=== PATIENT | male | born 1965 | race Caucasian/White ===

== ENCOUNTER 2019-09-19 09:29 | Inpatient (IN) | payer BC ==
[2019-09-19 09:50] VITALS: BMI 25.2
--- NOTE | 2019-09-19 10:41 | HP ---
CIWA Score Nausea/Vomitin Muscle Tremors: 2 Anxiety: 3 Agitation: 3 Paroxysmal Sweats: No Perspiration Orientation: 0-Oriented Tacttile Disturbances: 1-Very Mild Itch/Numbness Auditory Disturbances: 0-None Visual Disturbances: 0-None Headache: 2-Mild CIWA-Ar Total Score: 13 - Admission Criteria OASAS Guidelines: Admission for Medically Managed Detox: Requires at least one of the followin. CIWA greater than 12 2. Seizures within the past 24 hours 3. Delirium tremens within the past 24 hours 4. Hallucinations within the past 24 hours 5. Acute intervention needed for co occurring medical disorder 6. Acute intervention needed for co occurring psychiatric disorder 7. Severe withdrawal that cannot be handled at a lower level of care (continued vomiting, continued diarrhea, abnormal vital signs) requiring intravenous medication and/or fluids 8. Admission ROS S - HPI Chief Complaint: i need help to stop drinking alcohol and drugs Allergies/Adverse Reactions: Allergies Allergy/AdvReac Type Severity Reaction Status Date / Time No Known Allergies Allergy Verified 09/19/19 09:37 History of Present Illness: this 54 years old male with alcohol,cocaine and marijuana,k2,heroin abused,on mmtp 100 mgs/day,last medicated methadone on 09/18/19 first time to this facility never been in detox before syncope last night no seizure seen in [place] last night ,hepatitis c for 2 years follow up with [place] pending on treatment bipolar disorder ,non compliance no sobriety plan for outpatient program and mmtp clinic Exam Limitations: No Limitations - Ebola screening Have you traveled outside of the country in the last 21 days: No (N) Have you had contact with anyone from an Ebola affected area: No Do you have a fever: No - Review of Systems Constitutional: Chills, Malaise, Night Sweats, Changes in sleep, Weakness EENT: reports: Tearing, Nose Congestion Respiratory: reports: No Symptoms reported, Other (asthma) Cardiac: reports: No Symptoms Reported GI: reports: Nausea, Poor Appetite, Vomiting, Abdominal cramping : reports: No Symptoms Reported Musculoskeletal: reports: Back Pain, Muscle Pain Integumentary: reports: Dryness Neuro: reports: Headache, Tremors Endocrine: reports: No Symptoms Reported Hematology: reports: No Symptoms Reported Psychiatric: reports: No Sypmtoms Reported, Judgement Intact, Mood/Affect Appropiate, other (bipolar disorder) Other Systems: Reviewed and Negative Patient History - Patient Medical History Hx Anemia: No Hx Asthma: Yes (on albuterol inhaler) Hx Chronic Obstructive Pulmonary Disease (COPD): No Hx Cancer: No Hx Cardiac Disorders: No Hx Congestive Heart Failure: No Hx Hypertension: No Hx Hypercholesterolemia: No Hx Pacemaker: No HX Cerebrovascular Accident: No Hx Seizures: No Hx Dementia: No Hx Diabetes: No Hx Gastrointestinal Disorders: No Hx Liver Disease: Yes (hapatitis c no treatment follow up with pmd at [place]) Hx Genitourinary Disorders: No Hx Sexually Transmitted Disorders: No Hx Renal Disease (ESRD): No Hx Thyroid Disease: No Hx Human Immunodeficiency Virus (HIV): No (06/11 negative) Hx Hepatitis C: Yes (no treatment) Hx Depression: No Hx Suicide Attempt: No Hx Bipolar Disorder: Yes (non compliance with medication) Hx Schizophrenia: Yes (non compliance with medication) Other Medical History: no sicidal,no homicidal - Patient Surgical History Past Surgical History: No - PPD History Previous Implant?: Yes Documented Results: Negative w/o proof Implanted On Prior [facility] Admission?: No PPD to be Administered?: Yes - Smoking Cessation Smoking history: Current every day smoker Have you smoked in the past 12 months: Yes Aproximately how many cigarettes per day: 20 Cigars Per Day: 0 Hx Chewing Tobacco Use: No Initiated information on smoking cessation: Yes 'Breaking Loose' booklet given: 09/19/19 - Substance & Tx. History Hx Alcohol Use: Yes Hx Substance Use: Yes Substance Use Type: Alcohol, Cocaine, Heroin, Marijuana Hx Substance Use Treatment: No - Substances abused Alcohol Substance route: Oral Frequency: Daily Amount used: 7 PINTS OF VODKA Age of first use: 25 Date of last use: 09/18/19 Heroin Substance route: Injection Frequency: Daily Amount used: 13 BAGS Age of first use: 13 Date of last use: 09/18/19 Cocaine Substance route: Injection Frequency: Daily Amount used: 2 grams Age of first use: 25 Date of last use: 09/18/19 Marijuana/Hashish Substance route: Smoking Frequency: Daily Amount used: 10$ Age of first use: 19 Date of last use: 09/18/19 K2/Spice Substance route: Smoking Frequency: Daily Amount used: 5$ Age of first use: 54 Date of last use: 09/18/19 Admission Physical Exam [facility] - Vital Signs Vital Signs: Vital Signs - 24 hr 09/19/19 09:33 Temperature 97.7 F Pulse Rate 71 Respiratory 20 Rate Blood Pressure 100/64 - Physical General Appearance: Yes: Moderate Distress, Tremorous, Irritable, Anxious HEENTM: Yes: Normal ENT Inspection, PAUL, Pharynx Normal Respiratory: Yes: Lungs Clear, Normal Breath Sounds, No Respiratory Distress Neck: Yes: Within Normal Limits, Supple, Trachea in good position Breast: Yes: Within Normal Limits Cardiology: Yes: Within Normal Limits, Regular Rhythm, Regular Rate, S1, S2 Abdominal: Yes: Within Normal Limits, Normal Bowel Sounds, Non Tender, Soft Genitourinary: Yes: Within Normal Limits Musculoskeletal: Yes: Back pain, Muscle Pain Extremities: Yes: Tremors Neurological: Yes: Within Normal Limits, fur designer II-XII NML intact, Fully Oriented, Alert Integumentary: Yes: Dry, Track Diaz Lymphatic: Yes: Within Normal Limits - Diagnostic (1) Alcohol dependence with uncomplicated withdrawal Current Visit: Yes Status: Acute (2) History of opioid abuse Current Visit: Yes Status: Acute (3) Methadone maintenance therapy patient Current Visit: Yes Status: Acute (4) IVDU (intravenous drug user) Current Visit: Yes Status: Acute (5) Bipolar disorder Current Visit: Yes Status: Deleted (6) Schizophrenia Current Visit: Yes Status: Acute (7) Dehydration Current Visit: Yes Status: Acute (8) Asthma Current Visit: Yes Status: Chronic (9) Use of cane as ambulatory aid Current Visit: Yes Status: Acute Cleared for Admission [facility] - Detox or Rehab [facility] Level of Care: Medically Managed Detox Regimen/Protocol: Librium Inpatient Rehab Admission - Rehab Decision to Admit Inpatient rehab admission?: No
[2019-09-19] MEDS ORDERED: chlordiazePOXIDE HCL 25 MG CAPSULE PO PRN (10:55)
[2019-09-19] MEDS ORDERED: IBUPROFEN 400 MG TABLET (FP) PO PRN (10:55)
[2019-09-19] MEDS ORDERED: NICOTINE POLACRILEX 2 MG GUM BUC PRN (10:55)
[2019-09-19] MEDS ORDERED: MELATONIN 5 MG TABLETS PO PRN (10:55)
[2019-09-19] MEDS ORDERED: MAGNESIUM CITRATE 300 ML BOTTLE PO PRN (10:55)
[2019-09-19] MEDS ORDERED: MENTHOL/PHENOL 1 EACH UD MM PRN (10:55)
[2019-09-19] MEDS ORDERED: MAGNESIUM HYDROX 2400MG/30ML ORAL SUSPENSION 30 ML CUP PO PRN (10:55)
[2019-09-19] MEDS ORDERED: hydrOXYzine PAMOATE 25 MG CAPSULE (FP) PO PRN (10:55)
[2019-09-19] MEDS ORDERED: METHOCARBAMOL 500 MG TABLET PO PRN (10:55)
[2019-09-19] MEDS ORDERED: MAG HYDROX/AL HYDROX/SIMETH 30 ML UNIT-DOSE CUP PO PRN (10:55)
[2019-09-19] MEDS ORDERED: ACETAMINOPHEN 325 MG TABLET (FP) PO PRN (10:55)
[2019-09-19] MEDS ORDERED: ALBUTEROL SO4 8 GM HFA INHALER IH PRN (11:07)
[2019-09-19] MEDS: NICOTINE 21 MG/24 HOURS TOPICAL PATCH TD SCH (11:50)
[2019-09-19] MEDS: chlordiazePOXIDE HCL 25 MG CAPSULE PO SCH ×2 (17:18→23:18)
--- NOTE | 2019-09-19 20:34 | PN ---
[facility] Progress Note Note: MD'S NOTE: INFORMED AT ABOUT 8:10PM THAT THE PT. FELL ON THE FLOOR SUB: FEELS WEAK AND DIZZY AND FELL HE CLAIMS THAT HE HIT THE RT. SIDE OF THE HEAD PAIN IN RT. WRIST+ OBJ: THE PT. IS [place] X 3, NOT DYSPNEIC AND NOT IN ACUTE DISTRESS V/S: 98.2-16-74-105/62 L/E: RT. SIDE OF THE HEAD: TENDERNESS++. NO SWELLING RT. 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 SIDE OF THE HEAD SPRAIN - RT. WRIST REGION - R/O: FRACTURE PLANS: -THE PT. WAS SENT TO THE ER FOR EVALUATION PER THE FALL PROTOCOL #1 -DR. SLADE, THE ER-MD WAS MADE AWARE OF THE EVENTS -WILL F/U NEEDED PROVIDER: DENG ERAZO MD
[2019-09-19] MEDS: THIAMINE HCL 100 MG TABLET (FP) PO SCH (23:19)
[2019-09-20] MEDS: chlordiazePOXIDE HCL 25 MG CAPSULE PO SCH ×4 (06:23→22:39)
[2019-09-20] MEDS: ACETAMINOPHEN 325 MG TABLET (FP) PO PRN (06:23)
[2019-09-20] MEDS ORDERED: METHADONE HCL 40 MG DISPERSABLE TABLET ONE (07:25)
[2019-09-20] MEDS ORDERED: METHADONE HCL 10 MG TABLET ONE (07:25)
[2019-09-20] MEDS: METHADONE 80 MG, METHADONE 20 MG PO SCH (07:29)
[2019-09-20] MEDS ORDERED: METHADONE HCL 10 MG TABLET PO SCH (07:30)
[2019-09-20 10:00] LABS: HEMATOCRIT 37.8 % (35.4-49); MCH 26.5 pg (25.7-33.7); MCHC 31.8 g/dl (32.0-35.9); MEAN CELL VOLUME 83.3 fl (80-96); PLATELET COUNT 278 K/MM3 (134-434); RBC 4.53 M/mm3 (4.00-5.60); RDW 14.7 % (11.9-15.9); WHITE BLOOD COUNT 5.9 K/mm3 (4.0-10.0)
[2019-09-20 10:08] LABS: BILIRUBIN,TOTAL 0.2 mg/dL (0.2-1); BLOOD UREA NITROGEN 18.4 mg/dL (7-18); CALCIUM 8.9 mg/dL (8.5-10.1); CREATININE 0.8 mg/dL (0.55-1.3); POTASSIUM 4.3 mmol/L (3.5-5.1); TOT PROT 6.8 g/dl (6.4-8.2)
[2019-09-20] MEDS: PRENATAL VITAMINS W/ FOLIC ACID TABLET (FP) PO SCH (10:28)
[2019-09-20] MEDS: NICOTINE 21 MG/24 HOURS TOPICAL PATCH TD SCH (10:29)
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
[2019-09-20] MEDS ORDERED: FLU VACCINE QUAD 60 MCG/0.5 ML (MDV 19-20) IM ONE (12:00)
[2019-09-20] MEDS: ESCITALOPRAM OXALATE 20 MG TABLET (FP) PO SCH (12:00)
--- NOTE | 2019-09-20 14:21 | PN ---
[facility] CIWA - CIWA Score Nausea/Vomitin-Mild Nausea/No Vomiting Muscle Tremors: 2 Anxiety: 2 Agitation: 2 Paroxysmal Sweats: No Perspiration Orientation: 0-Oriented Tacttile Disturbances: 1-Very Mild Itch/Numbness Auditory Disturbances: 0-None Visual Disturbances: 0-None Headache: 2-Mild CIWA-Ar Total Score: 10 S Progress Note (SOAP) Subjective: alert,irritable,anxious,interrupted sleep,pain in the body ,back,tremor Objective: 09/20/19 14:20 Vital Signs Temperature 97.7 F 09/20/19 13:12 Pulse Rate 71 09/20/19 13:12 Respiratory Rate 16 09/20/19 13:12 Blood Pressure 124/58 L 09/20/19 13:12 O2 Sat by Pulse Oximetry (%) Laboratory Last Values WBC 5.9 K/mm3 (4.0-10.0) 09/20/19 08:20 RBC 4.53 M/mm3 (4.00-5.60) 09/20/19 08:20 Hgb 12.0 GM/dL (11.7-16.9) 09/20/19 08:20 Hct 37.8 % (35.4-49) 09/20/19 08:20 MCV 83.3 fl (80-96) 09/20/19 08:20 MCH 26.5 pg (25.7-33.7) 09/20/19 08:20 MCHC 31.8 g/dl (32.0-35.9) L 09/20/19 08:20 RDW 14.7 % (11.9-15.9) 09/20/19 08:20 Plt Count 278 K/MM3 (134-434) 09/20/19 08:20 MPV 8.0 fl (7.5-11.1) 09/20/19 08:20 Sodium 139 mmol/L (136-145) 09/20/19 08:20 Potassium 4.3 mmol/L (3.5-5.1) 09/20/19 08:20 Chloride 104 mmol/L (98-107) 09/20/19 08:20 Carbon Dioxide 29 mmol/L (21-32) 09/20/19 08:20 Anion Gap 6 MMOL/L (8-16) L 09/20/19 08:20 BUN 18.4 mg/dL (7-18) H 09/20/19 08:20 Creatinine 0.8 mg/dL (0.55-1.3) 09/20/19 08:20 Est GFR (CKD-EPI)AfAm 116.56 09/20/19 08:20 Est GFR (CKD-EPI)NonAf 100.57 09/20/19 08:20 Random Glucose 92 mg/dL (74-106) 09/20/19 08:20 Calcium 8.9 mg/dL (8.5-10.1) 09/20/19 08:20 Total Bilirubin 0.2 mg/dL (0.2-1) 09/20/19 08:20 AST 27 U/L (15-37) 09/20/19 08:20 ALT 24 U/L (13-61) 09/20/19 08:20 Alkaline Phosphatase 117 U/L (45-117) 09/20/19 08:20 Total Protein 6.8 g/dl (6.4-8.2) 09/20/19 08:20 Albumin 3.0 g/dl (3.4-5.0) L 09/20/19 08:20 RPR Titer Nonreactive (NONREACTIVE) 09/20/19 08:20 HIV 1&2 Antibody Screen Negative 09/20/19 08:20 HIV P24 Antigen Negative 09/20/19 08:20 Assessment: 09/20/19 14:21 withdrawal symptom Plan: continue detox,bun 18.4,probably due to dehydration,encourage oral fluid,obtain cane for ambulatory aid
[2019-09-20] MEDS ORDERED: SUVOREXANT 10 MG TABLET PO PRN (22:00)
[2019-09-20] MEDS: THIAMINE HCL 100 MG TABLET (FP) PO SCH (22:05)
[2019-09-20] MEDS: OLANZapine 10 MG TABLET PO SCH (22:08)
[2019-09-21] MEDS ORDERED: METHADONE HCL 40 MG DISPERSABLE TABLET ONE ×2 (04:44→09:02)
[2019-09-21] MEDS ORDERED: METHADONE HCL 10 MG TABLET ONE ×2 (04:44→09:01)
[2019-09-21] MEDS: chlordiazePOXIDE HCL 25 MG CAPSULE PO SCH ×4 (05:52→23:25)
[2019-09-21] MEDS: LOPERAMIDE HCL 2 MG CAPSULE PO PRN (06:39)
[2019-09-21] MEDS: METHADONE 80 MG, METHADONE 20 MG PO SCH ×2 (07:11→11:32)
[2019-09-21] MEDS: BISMUTH SUBSALICYLATE 524 MG/30 ML UD PO PRN (11:08)
[2019-09-21] MEDS: ESCITALOPRAM OXALATE 20 MG TABLET (FP) PO SCH (11:32)
--- NOTE | 2019-09-21 11:32 | PN ---
[facility] CIWA - CIWA Score Nausea/Vomitin-Mild Nausea/No Vomiting Muscle Tremors: 2 Anxiety: 2 Agitation: 2 Paroxysmal Sweats: No Perspiration Orientation: 0-Oriented Tacttile Disturbances: 1-Very Mild Itch/Numbness Auditory Disturbances: 0-None Visual Disturbances: 0-None Headache: 1-Very Mild CIWA-Ar Total Score: 9 BHS COWS - Scale Resting Pulse: 0= [place] 80 or Below Sweatin= No chills or Flushing Restless Observation: 1= Difficult to Sit Still Pupil Size: 1= Pupils >than Normal Bone or Joint Aches: 1= Mild Discomfort Runny Nose/ Eye Tearin= Nasal Congestion GI Upset > 30mins: 2= Nausea/Diarrhea Tremor Observation of Outstretched Hands: 2= Slight Tremor Visible Yawning Observation: 1= 1-2x During Session Anxiety or Irritability: 2=Irritable/Anxious Goose Flesh Skin: 0=Smooth Skin COWS Score: 11 S Progress Note (SOAP) Subjective: alert,irritable,anxious,loose bowel movement,pain in the body,back Objective: 09/21/19 11:30 Vital Signs Temperature 97.9 F 09/21/19 09:37 Pulse Rate 84 09/21/19 09:37 Respiratory Rate 18 09/21/19 09:37 Blood Pressure 119/64 09/21/19 09:37 O2 Sat by Pulse Oximetry (%) Assessment: 09/21/19 11:31 withdrawal symptom Plan: continue detox methadone and lirium regimen
[2019-09-21] MEDS: NICOTINE 21 MG/24 HOURS TOPICAL PATCH TD SCH (11:35)
[2019-09-21] MEDS: PRENATAL VITAMINS W/ FOLIC ACID TABLET (FP) PO SCH (11:35)
[2019-09-21] MEDS: THIAMINE HCL 100 MG TABLET (FP) PO SCH (23:30)
[2019-09-21] MEDS: OLANZapine 10 MG TABLET PO SCH (23:35)
[2019-09-22] MEDS ORDERED: chlordiazePOXIDE HCL 10 MG CAPSULE PO PRN
[2019-09-22] MEDS: LOPERAMIDE HCL 2 MG CAPSULE PO PRN ×3 (01:57→15:52)
[2019-09-22] MEDS: chlordiazePOXIDE HCL 10 MG CAPSULE PO SCH ×5 (06:25→22:26)
[2019-09-22] MEDS: ACETAMINOPHEN 325 MG TABLET (FP) PO PRN (06:26)
[2019-09-22] MEDS ORDERED: METHADONE HCL 10 MG TABLET ONE (09:34)
[2019-09-22] MEDS ORDERED: METHADONE HCL 40 MG DISPERSABLE TABLET ONE (09:35)
--- NOTE | 2019-09-22 09:44 | PN ---
S CIWA - CIWA Score Nausea/Vomitin-Mild Nausea/No Vomiting Muscle Tremors: 1-None Visible, but [place] Anxiety: 2 Agitation: 2 Paroxysmal Sweats: No Perspiration Orientation: 0-Oriented Tacttile Disturbances: 1-Very Mild Itch/Numbness Auditory Disturbances: 0-None Visual Disturbances: 0-None Headache: 1-Very Mild CIWA-Ar Total Score: 8 BHS Progress Note (SOAP) Subjective: alert,irritable,anxious,interrupted sleep,pain in the body,knees Objective: 09/22/19 09:43 Vital Signs Temperature 97.9 F 09/22/19 06:23 Pulse Rate 74 09/22/19 06:23 Respiratory Rate 18 09/22/19 06:23 Blood Pressure 108/63 09/22/19 06:23 O2 Sat by Pulse Oximetry (%) Assessment: 09/22/19 09:43 withdrawal symptom Plan: continue detox librium regimen
[2019-09-22] MEDS: PRENATAL VITAMINS W/ FOLIC ACID TABLET (FP) PO SCH ×2 (10:47→11:17)
[2019-09-22] MEDS: METHADONE 80 MG, METHADONE 20 MG PO SCH (10:48)
[2019-09-22] MEDS: ESCITALOPRAM OXALATE 20 MG TABLET (FP) PO SCH ×2 (10:48→11:17)
[2019-09-22] MEDS: NICOTINE 21 MG/24 HOURS TOPICAL PATCH TD SCH ×2 (10:48→11:17)
[2019-09-22] MEDS: BISMUTH SUBSALICYLATE 524 MG/30 ML UD PO PRN (17:49)
--- NOTE | 2019-09-22 19:09 | PN ---
S Progress Note Note: Vital Signs Temperature 98.1 F 09/22/19 17:04 Pulse Rate 64 09/22/19 17:04 Respiratory Rate 20 09/22/19 17:04 Blood Pressure 92/57 L 09/22/19 17:04 O2 Sat by Pulse Oximetry (%) BP 160/80 PATIENT EVALUATED D/T EPISODE OF DIZZY SPELL AND LOWER SELF TO THE FLOOR PATIENT REPORTS HE BEND FORWARD AND FELT DIZZY, DENIES HEADACHE ANY OTHER SYMPTOMS PATIENT AOX3 NO ACUTE DISTRESS EENT WNL, CHEILITHIS FULL ROM NO GAIT DISTURBANCE AMBULATING IN THE UNIT WITH CANE VERTIGO INCREASE PO FLUIDS WHEELCHAIR CONTINUE TO MONITOR
[2019-09-22] MEDS: OLANZapine 10 MG TABLET PO SCH (22:25)
[2019-09-22] MEDS: THIAMINE HCL 100 MG TABLET (FP) PO SCH (22:26)
[2019-09-23] MEDS: ACETAMINOPHEN 325 MG TABLET (FP) PO PRN (02:42)
[2019-09-23] MEDS: chlordiazePOXIDE HCL 10 MG CAPSULE PO SCH ×2 (07:19→17:54)
[2019-09-23] MEDS ORDERED: METHADONE HCL 40 MG DISPERSABLE TABLET ONE (09:34)
[2019-09-23] MEDS ORDERED: METHADONE HCL 10 MG TABLET ONE (09:34)
--- NOTE | 2019-09-23 09:47 | PN ---
BHS COWS - Scale Resting Pulse: 1= AL 81-100 Sweatin= No chills or Flushing Restless Observation: 1= Difficult to Sit Still Pupil Size: 1= Pupils >than Normal Bone or Joint Aches: 1= Mild Discomfort Runny Nose/ Eye Tearin= Nasal Congestion GI Upset > 30mins: 1= Stomach Cramp Tremor Observation of Outstretched Hands: 1= Tremor [place], Not Seen Yawning Observation: 1= 1-2x During Session Anxiety or Irritability: 2=Irritable/Anxious Goose Flesh Skin: 0=Smooth Skin COWS Score: 10 S Progress Note (SOAP) Subjective: alert,feel weak,diarrhea,pain in the body Objective: 09/23/19 09:46 Vital Signs Temperature 97.7 F 09/23/19 09:19 Pulse Rate 91 H 09/23/19 09:19 Respiratory Rate 20 09/23/19 09:19 Blood Pressure 103/62 09/23/19 09:19 O2 Sat by Pulse Oximetry (%) Assessment: 09/23/19 09:46 withdrawal symptom Plan: continue detox librium regimen,discharge in am
[2019-09-23] MEDS: PRENATAL VITAMINS W/ FOLIC ACID TABLET (FP) PO SCH (10:01)
[2019-09-23] MEDS: METHADONE 80 MG, METHADONE 20 MG PO SCH (10:01)
[2019-09-23] MEDS: ESCITALOPRAM OXALATE 20 MG TABLET (FP) PO SCH (10:01)
[2019-09-23] MEDS: NICOTINE 21 MG/24 HOURS TOPICAL PATCH TD SCH (10:04)
[2019-09-23] MEDS: LOPERAMIDE HCL 2 MG CAPSULE PO PRN ×2 (10:17→22:41)
[2019-09-23] MEDS ORDERED: LOPERAMIDE HCL 2 MG CAPSULE PO ONE (15:16)
[2019-09-23] MEDS: THIAMINE HCL 100 MG TABLET (FP) PO SCH (22:39)
[2019-09-23] MEDS: OLANZapine 10 MG TABLET PO SCH (22:41)
[2019-09-24] MEDS ORDERED: chlordiazePOXIDE HCL 10 MG CAPSULE PO ONE (05:00)
[2019-09-24] MEDS: ACETAMINOPHEN 325 MG TABLET (FP) PO PRN (05:36)
--- NOTE | 2019-09-24 09:09 | DS ---
[facility] Detox Discharge Summary Admission Date: 09/19/19 Discharge Date: 09/24/19 - History Present History: Alcohol Dependence, Cannabis Dependence, Cocaine Dependence, MMTP - Physical Exam Results Vital Signs: Vital Signs Temperature 96.6 F L 09/24/19 06:00 Pulse Rate 75 09/24/19 06:00 Respiratory Rate 18 09/24/19 06:00 Blood Pressure 105/76 09/24/19 06:00 O2 Sat by Pulse Oximetry (%) Pertinent Admission Physical Exam Findings: pt arrived in withdrawals Vital Signs Temperature 96.6 F L 09/24/19 06:00 Pulse Rate 75 09/24/19 06:00 Respiratory Rate 18 09/24/19 06:00 Blood Pressure 105/76 09/24/19 06:00 O2 Sat by Pulse Oximetry (%) Laboratory Tests 09/20/19 09/20/19 09/20/19 08:20 08:20 08:20 WBC 5.9 RBC 4.53 Hgb 12.0 Hct 37.8 MCV 83.3 MCH 26.5 MCHC 31.8 L RDW 14.7 Plt Count 278 MPV 8.0 Sodium 139 Potassium 4.3 Chloride 104 Carbon Dioxide 29 Anion Gap 6 L BUN 18.4 H Creatinine 0.8 Est GFR (CKD-EPI)AfAm 116.56 Est GFR (CKD-EPI)NonAf 100.57 Random Glucose 92 Calcium 8.9 Total Bilirubin 0.2 AST 27 ALT 24 Alkaline Phosphatase 117 Total Protein 6.8 Albumin 3.0 L RPR Titer HIV 1&2 Antibody Screen Negative HIV P24 Antigen Negative 09/20/19 08:20 WBC RBC Hgb Hct MCV MCH MCHC RDW Plt Count MPV Sodium Potassium Chloride Carbon Dioxide Anion Gap BUN Creatinine Est GFR (CKD-EPI)AfAm Est GFR (CKD-EPI)NonAf Random Glucose Calcium Total Bilirubin AST ALT Alkaline Phosphatase Total Protein Albumin RPR Titer Nonreactive HIV 1&2 Antibody Screen HIV P24 Antigen today pt is aaox3 ambulating no acute distress no s/s of withdrawals - Treatment Hospital Course: Detox Protocol Followed, Detoxed Safely, Responded well, Discharged Condition Good, Rehab Referral Accepted Patient has Accepted a Rehab Referral to: pt referred to [facility] inpatient rehab - Medication Discharge Medications: Ambulatory Orders Albuterol Sulfate Inhaler - [Ventolin Hfa Inhaler -] 2 inh PO PRN PRN 09/19/19 Methadone [Dolophine -] 100 mg PO DAILY 09/19/19 - Diagnosis (1) Alcohol dependence with uncomplicated withdrawal Current Visit: Yes Status: Chronic (2) Cannabis dependence Current Visit: Yes Status: Chronic (3) Cocaine dependence Current Visit: Yes Status: Chronic Qualifiers: Substance use status: uncomplicated Qualified Code(s): F14.20 - Cocaine dependence, uncomplicated (4) IVDU (intravenous drug user) Current Visit: Yes Status: Chronic (5) Methadone maintenance therapy patient Current Visit: Yes Status: Chronic (6) Schizophrenia Current Visit: Yes Status: Acute (7) Substance-induced anxiety disorder Current Visit: Yes Status: Acute (8) Substance-induced sleep disorder Current Visit: Yes Status: Acute (9) Use of cane as ambulatory aid Current Visit: Yes Status: Acute (10) Asthma Current Visit: Yes Status: Chronic Qualifiers: Asthma severity: mild Asthma persistence: intermittent (11) Hepatitis C Current Visit: Yes Status: Chronic (12) Nicotine dependence Current Visit: Yes Status: Chronic Qualifiers: Nicotine product type: cigarettes Substance use status: uncomplicated Qualified Code(s): F17.210 - Nicotine dependence, cigarettes, uncomplicated (13) PTSD (post-traumatic stress disorder) Current Visit: Yes Status: Chronic (14) Fall Current Visit: Yes Status: Acute Qualifiers: Encounter type: initial encounter Qualified Code(s): W19.XXXA - Unspecified fall, initial encounter - AMA Did Patient Leave Against Medical Advice: No
[2019-09-24] MEDS ORDERED: METHADONE HCL 40 MG DISPERSABLE TABLET ONE (09:21)
[2019-09-24] MEDS ORDERED: METHADONE HCL 10 MG TABLET ONE (09:21)
[2019-09-24] MEDS: METHADONE 80 MG, METHADONE 20 MG PO SCH (09:28)
[2019-09-24] MEDS: ESCITALOPRAM OXALATE 20 MG TABLET (FP) PO SCH (09:28)
[2019-09-24] MEDS: NICOTINE 21 MG/24 HOURS TOPICAL PATCH TD SCH (09:28)
[2019-09-24] MEDS: PRENATAL VITAMINS W/ FOLIC ACID TABLET (FP) PO SCH (09:29)
[2019-09-24 09:30] VITALS: BP 117/56; PULSE 88; TEMP 97.5
== END 2019-09-24 11:28 | disposition home or self-care (01) | DRG 773 ==
LOC: YASAS 09:29 → Y6N 10:58
PROVIDERS: ADMIT Allergy & Immunology; ATTEND Allergy & Immunology
PROC: HZ2ZZZZ Detoxification Services for Substance Abuse Treatment (ICD-10-PCS; principal; 2019-09-19)
DX: F10.230 Alcohol dependence with withdrawal, uncomplicated (principal); F11.20 Opioid dependence, uncomplicated; F14.20 Cocaine dependence, uncomplicated; F12.20 Cannabis dependence, uncomplicated; F17.210 Nicotine dependence, cigarettes, uncomplicated; F19.282 Other psychoactive substance dependence with psychoactive substance-induced sleep disorder; F19.280 Other psychoactive substance dependence with psychoactive substance-induced anxiety disorder; F31.9 Bipolar disorder, unspecified; F25.9 Schizoaffective disorder, unspecified; F43.10 Post-traumatic stress disorder, unspecified; J45.20 Mild intermittent asthma, uncomplicated; E86.0 Dehydration; R42 Dizziness and giddiness; B18.2 Chronic viral hepatitis C; S09.8XXA Other specified injuries of head, initial encounter; S63.501A Unspecified sprain of right wrist, initial encounter; W18.39XA Other fall on same level, initial encounter; Y93.89 Activity, other specified; Y92.238 Other place in hospital as the place of occurrence of the external cause; Y99.8 Other external cause status; Z99.89 Dependence on other enabling machines and devices; Z59.0 Homelessness
CPT/HCPCS: 36415; 80053; 85027; 86593; 87389

== ENCOUNTER 2019-09-19 21:27 | Emergency (ER) | payer BC ==
--- NOTE | 2019-09-19 22:08 | PDOC ---
History of Present Illness - General Stated Complaint: FALL Time Seen by Provider: 09/19/19 21:36 History Source: Patient, EMS Exam Limitations: No Limitations - History of Present Illness Initial Comments: 09/19/19 22:05 Jazz Nagy is a 54M history of polysubstance abuse and psychiatric disorders sent from [facility] for a fall. Patient says he got dizzy and fell forward onto his hands, hit the back of the right side of his head and says he has a headache and a bump there. Has pain in his right hand, and the middle finger of his left hand. Known history of L knee pain. Admitted to [facility] for detox, requesting 100mg methadone but was only given 30mg with Librium. Past History - Past Medical History Allergies/Adverse Reactions: Allergies Allergy/AdvReac Type Severity Reaction Status Date / Time No Known Allergies Allergy Verified 09/19/19 09:37 Home Medications: Ambulatory Orders Albuterol Sulfate Inhaler - [Ventolin Hfa Inhaler -] 2 inh PO PRN PRN 09/19/19 Methadone [Dolophine -] 100 mg PO DAILY 09/19/19 Anemia: No Asthma: Yes Cancer: No Cardiac Disorders: No CVA: No COPD: No CHF: No Dementia: No Diabetes: No GI Disorders: No Disorders: No HTN: No Hypercholesterolemia: No Kidney Stones: No Liver Disease: Yes (hapatitis c no treatment follow up with pmd at [place]) Seizures: No Thyroid Disease: No - Surgical History Abdominal Surgery: No Appendectomy: No Cardiac Surgery: No Cholecystectomy: No Lung Surgery: No Neurologic Surgery: No Orthopedic Surgery: No - Reproductive History Testicular Surgery: No - Psycho Social/Smoking Cessation Hx Smoking History: Current every day smoker Have you smoked in the past 12 months: Yes Number of Cigarettes Smoked Daily: 20 Cigars Per Day: 0 'Breaking Loose' booklet given: 09/19/19 Hx Alcohol Use: Yes Drug/Substance Use Hx: Yes Substance Use Type: Alcohol, Cocaine, Heroin, Marijuana Hx Substance Use Treatment: Yes Review of Systems - Review of Systems Constitutional: Yes: Weakness. No: Chills, Fever HEENTM: No: Symptoms Reported Respiratory: No: Symptoms reported Cardiac (ROS): Yes: Lightheadedness. No: Chest Pain, Syncope ABD/GI: No: Constipated, Diarrhea, Nausea, Vomiting : No: Symptoms Reported Musculoskeletal: Yes: Muscle Weakness Integumentary: No: Symptoms Reported Neurological: Yes: Headache, Unsteady Gait (known L knee pain). No: Numbness, Paresthesia Hematologic/Lymphatic: No: Symptoms Reported All Other Systems: Reviewed and Negative *Physical Exam - Physical Exam General Appearance: Yes: Nourished, Appropriately Dressed, Moderate Distress ( agitated, says he feels sick, wants to walk home) HEENT: positive: EOMI, Normal Voice, Symmetrical, Hearing Grossly Normal, Other (raised bump to the posterior R head). negative: Scleral Icterus (R), Scleral Icterus (L) Neck: positive: Supple. negative: Tender, Rigid, Lymphadenopathy (R), Lymphadenopathy (L) Respiratory/Chest: positive: Lungs Clear, Normal Breath Sounds. negative: Chest Tender, Respiratory Distress, Accessory Muscle Use, Crackles, Rales, Rhonchi, Stridor, Wheezing Cardiovascular: positive: Regular Rhythm, Regular Rate. negative: Murmur Gastrointestinal/Abdominal: positive: Normal Bowel Sounds, Flat, Soft. negative : Tender, Hernia Musculoskeletal: positive: Normal Inspection. negative: CVA Tenderness Extremity: positive: Normal Inspection, Normal Range of Motion, Tender (L knee, middle finger L hand. Palpation no evidence of dislocation or fracture, but tender to palpation.), Other (L knee tender to palpation, ROM limited 2/2 pain. BLE sensation intact to LT, DP pulses present, skin warm. R hand full ROM, no evidence of fracture or dislocation, no erythema. L hand full ROM, swelling and erythema noted to L middle finger.) Integumentary: positive: Normal Color, Dry, Warm Neurologic: positive: Alert, Normal Mood/Affect, Normal Response, Other (walks with LLE limp, no unsteadiness) ED Treatment Course - RADIOLOGY Radiology Studies Ordered: Category Date Time Status CERVICAL SPINE CT W/O CONTR [CT] Stat CT Scan 09/19/19 21:[address] WITHOUT CONTRAST [CT] Stat CT Scan 09/19/19 21:38 Ordered HAND- LEFT [RAD] Stat Radiology 09/19/19 22:04 Ordered HAND- RIGHT [RAD] Stat Radiology 09/19/19 21:38 Ordered Medical Decision Making - Medical Decision Making 09/19/19 22:05 Jazz Nagy is a 54M history of polysubstance abuse and psychiatric disorders sent from [facility] for a fall. Has obvious bump to back of head, complains of pain in his hands and L knee. CT head/c-cpine XR hands and L knee 09/19/19 23:57 Imaging done, no evidence of fracture on hands or knee. Knee pain likely 2/2 muscular etiology vs. tendon injury, no arthritic changes or fracture notable. Pending CT head and neck read. 09/20/19 01:[address] head, no fracture on C-Spine. Stable to be discharged back to [facility]. Discharge - Discharge Information Problems reviewed: Yes Clinical Impression/Diagnosis: Fall Qualifiers: Encounter type: initial encounter Qualified Code(s): W19.XXXA - Unspecified fall, initial encounter Condition: Stable Disposition: TRANSFER ACUTE CARE/OTHER HOSP - Admission No - Follow up/Referral - Patient Discharge Instructions Patient Printed Discharge Instructions: How to Prevent Falls Additional Instructions: Today you were evaluated for a fall. The CT scans of your head and neck show no broken bones or bleeding in your brain, X-rays of your hands and knee do not show any broken bones. You have no severe injuries from your fall requiring treatment at this time. Your CT scan shows some atelectatic changes that are not immediately concerning , but would need a further CT scan of your chest to further examine. If you need images from your visit, please call our radiology department. Please follow-up with your primary doctor in the next 3 days for further care. At [facility], please continue your detox as scheduled. If you experience more falls, headache, changes to vision, neck pain, nausea, vomiting, or any other new or concerning symptoms, please return to the emergency room. - Post Discharge Activity
[2019-09-19 22:46] VITALS: BP 100/68; TEMP 97.6; BMI 23.3
[2019-09-19 22:56] VITALS: PULSE 80
[2019-09-19] MEDS ORDERED: IBUPROFEN 400 MG TABLET (FP) PO ONE ×2 (22:58→22:59)
--- NOTE | 2019-09-20 01:09 | PDOC ---
Documentation entered by Mar Wise SCRIBE, acting as scribe for Sandra Erickson MD. Sandra Erickson MD: This documentation has been prepared by the maryibe, Mar Wise SCRIBE, under my direction and personally reviewed by me in its entirety. I confirm that the documentation accurately reflects all work, treatment, procedures, and medical decision making performed by me. Attending Attestation - Resident Resident Name: Chau Reis - ED Attending Attestation I have performed the following: I have examined & evaluated the patient, The case was reviewed & discussed with the resident, I agree w/resident's findings & plan, Exceptions are as noted - HPI HPI: 09/19/19 23:05 The patient is a 54 year old male with a past medical history significant for polysubstance abuse who presents to the emergency department from [place] via EMS s /p a fall. The patient presents s/p a fall to his right side landing on his right hand. The patient reports he felt dizzy prior to the fall. Denies fever or chills. Allergies: NKDA - Physicial Exam PE: 09/19/19 23:[address] Chau Reis 's physical exam. - Medical Decision Making 09/20/19 01:00 54 yo male who is admitted to [facility] and fell and hit his head and he was transported here for imaging ct scan head No evidence of acute intracranial hemorrhage, right maxillary sinus disease, nasal septal deviation CAT scan of the cervical spine impression 1 no evidence of acute fractures C2-C3 anterior listhesis 3 mild degenerative changes Emphysematous, atelectatic and/or fibrotic changes noted a dedicated chest CT is recommended for complete evaluation of the lungs Right maxillary sinus disease 09/20/19 01:08 hand radiographs negative for acute fractures pt discharged back to [facility]
== END 2019-09-20 03:41 | disposition short-term general hospital (02) ==
LOC: JER 21:27
DX: S09.8XXA Other specified injuries of head, initial encounter (principal); M79.641 Pain in right hand; M79.645 Pain in left finger(s); M25.562 Pain in left knee; W18.30XA Fall on same level, unspecified, initial encounter; Y93.89 Activity, other specified; Y92.238 Other place in hospital as the place of occurrence of the external cause; Y99.8 Other external cause status; J45.909 Unspecified asthma, uncomplicated; B18.2 Chronic viral hepatitis C; F10.10 Alcohol abuse, uncomplicated; F11.10 Opioid abuse, uncomplicated; F14.10 Cocaine abuse, uncomplicated; F12.10 Cannabis abuse, uncomplicated; F17.210 Nicotine dependence, cigarettes, uncomplicated
CPT/HCPCS: 70450-TC; 72125-TC; 73130-TC-LT-FY; 73130-TC-RT-FY; 73560-TC-LT-FY; 99281-25

== ENCOUNTER 2019-10-22 16:35 | Inpatient (IN) | payer BC ==
[2019-10-22 19:23] VITALS: BMI 27.7
--- NOTE | 2019-10-22 20:39 | HP ---
"CIWA Score Nausea/Vomitin-No Nausea/No Vomiting Muscle Tremors: 1-None Visible, but [place] Anxiety: 1-Mildly Anxious Agitation: 0-Normal Activity Paroxysmal Sweats: No Perspiration Orientation: 1-Uncertain about Date Tacttile Disturbances: 0-None Auditory Disturbances: 2-Mild Harshness/Frighten Visual Disturbances: 2-Mild Sensitivity Headache: 3-Moderate CIWA-Ar Total Score: 10 - Admission Criteria OASAS Guidelines: Admission for Medically Managed Detox: Requires at least one of the followin. CIWA greater than 12 2. Seizures within the past 24 hours 3. Delirium tremens within the past 24 hours 4. Hallucinations within the past 24 hours 5. Acute intervention needed for co occurring medical disorder 6. Acute intervention needed for co occurring psychiatric disorder 7. Severe withdrawal that cannot be handled at a lower level of care (continued vomiting, continued diarrhea, abnormal vital signs) requiring intravenous medication and/or fluids 8. Admitting History and Physical - Smoking History Smoking history: Current every day smoker Have you smoked in the past 12 months: Yes Aproximately how many cigarettes per day: 20 - Alcohol/Substance Use Hx Alcohol Use: Yes Admission ROS [facility] Allergies/Adverse Reactions: Allergies Allergy/AdvReac Type Severity Reaction Status Date / Time No Known Allergies Allergy Verified 10/22/19 18:59 History of Present Illness: Search Terms: denny shell, 02/21/1967 Search Date: 10/22/2019 08:39:38 PM The Drug Utilization Report below displays all of the controlled substance prescriptions, if any, that your patient has filled in the last twelve months. The information displayed on this report is compiled from pharmacy submissions to the Department, and accurately reflects the information as submitted by the pharmacies. This report was requested by: Diana Strong | Reference #: [id number] There are no results for the search terms that you entered. pt here requesting rehab for cocaine, K2 and cannabis use reports etoh 3 bottles /day of rum MMTP x 5 yrs , current daily dose 100 mg pt is very poor historian , drowsy , arousable by verbal stimuli . has d/c paperwork from [facility] indicating ETOH use , opioid use , cocaine use Exam Limitations: Clinical Condition - Ebola screening Have you traveled outside of the country in the last 21 days: No (N) Have you had contact with anyone from an Ebola affected area: No Do you have a fever: No - Review of Systems Constitutional: See HPI EENT: reports: See HPI Respiratory: reports: No Symptoms reported Cardiac: reports: No Symptoms Reported GI: reports: See HPI : reports: No Symptoms Reported Musculoskeletal: reports: No Symptoms Reported Integumentary: reports: No Symptoms Reported Neuro: reports: See HPI Endocrine: reports: No Symptoms Reported Psychiatric: reports: Disorientated Patient History - Patient Medical History Hx Anemia: No Hx Asthma: Yes Hx Chronic Obstructive Pulmonary Disease (COPD): No Hx Cancer: No Hx Cardiac Disorders: No Hx Congestive Heart Failure: No Hx Hypertension: No Hx Hypercholesterolemia: No Hx Pacemaker: No HX Cerebrovascular Accident: No Hx Seizures: No Hx Dementia: No Hx Diabetes: No Hx Gastrointestinal Disorders: No Hx Liver Disease: Yes (hapatitis c no treatment follow up with pmd at [place]) Hx Genitourinary Disorders: No Hx Sexually Transmitted Disorders: No Hx Renal Disease (ESRD): No Hx Thyroid Disease: No Hx Human Immunodeficiency Virus (HIV): No (06/11 negative) Hx Hepatitis C: Yes (no treatment) Hx Depression: Yes Hx Suicide Attempt: No Hx Bipolar Disorder: Yes (non compliance with medication) Hx Schizophrenia: No - Patient Surgical History Past Surgical History: No Hx Neurologic Surgery: No Hx Cataract Extraction: No Hx Cardiac Surgery: No Hx Lung Surgery: No Hx Breast Surgery: No Hx Breast Biopsy: No Hx Abdominal Surgery: No Hx Appendectomy: No Hx Cholecystectomy: No Hx Genitourinary Surgery: No Hx Section: No Hx Orthopedic Surgery: No Anesthesia Reaction: No - PPD History Date: 09/21/19 - Smoking Cessation Smoking history: Current every day smoker Have you smoked in the past 12 months: Yes Aproximately how many cigarettes per day: 20 Cigars Per Day: 0 Hx Chewing Tobacco Use: No Initiated information on smoking cessation: Yes 'Breaking Loose' booklet given: 10/22/19 - Substances abused Alcohol Substance route: Oral Frequency: Daily Amount used: 3 cups vodka Age of first use: 25 Date of last use: 10/21/19 Heroin Substance route: Injection Frequency: Daily Amount used: 4 bags Age of first use: 13 Date of last use: 10/21/19 Cocaine Substance route: Injection Frequency: Daily Amount used: 2 grams Age of first use: 25 Date of last use: 10/15/19 Marijuana/Hashish Substance route: Smoking Frequency: Daily Amount used: 10$ Age of first use: 19 Date of last use: 10/15/19 K2/Spice Substance route: Smoking Frequency: Daily Amount used: 5$ Age of first use: 54 Date of last use: 10/21/19 Admission Physical Exam BHS - Vital Signs Vital Signs: Vital Signs - 24 hr 10/22/19 19:10 Temperature 98.5 F Pulse Rate 69 Respiratory 16 Rate Blood Pressure 97/63 - Physical General Appearance: Yes: Mild Distress, Intoxicated, Other (drowsy) HEENTM: Yes: EOMI, Hearing grossly Normal, Normocephalic Respiratory: Yes: Chest Non-Tender, No Respiratory Distress, No Accessory Muscle Use, Wheezing (scattered expiratory) Neck: Yes: No masses,lesions,Nodules, Trachea in good position Cardiology: Yes: Regular Rhythm, Regular Rate, S1, S2 Abdominal: Yes: Non Tender, Soft Musculoskeletal: Yes: full range of Motion, Gait Steady Extremities: Yes: Normal Range of Motion, Pedal Edema Neurological: Yes: Fully Oriented, Alert, Motor Strength 5/5 Integumentary: Yes: Warm, Track Diaz - Diagnostic (1) Alcohol dependence with uncomplicated withdrawal Current Visit: Yes Status: Chronic (2) Cannabis dependence Current Visit: Yes Status: Chronic (3) Cocaine dependence Current Visit: Yes Status: Chronic Qualifiers: Substance use status: uncomplicated Qualified Code(s): F14.20 - Cocaine dependence, uncomplicated (4) Methadone maintenance therapy patient Current Visit: Yes Status: Chronic Breathalyzer - Breathalyzer Breathalyzer: 0 Urine Drug Screen - Test Device Lot number: [id number] Expiration date: 04/23/21 - Control Is test valid?: Yes - Results Drug screen NEGATIVE: No Urine drug screen results: THC-Marijuana, ALCIRA-Cocaine, MOP-Opiates, MTD- Methadone, BZO-Benzodiazepines Inpatient Rehab Admission - Rehab Decision to Admit Inpatient rehab admission?: No"
[2019-10-22] MEDS ORDERED: MAGNESIUM CITRATE 300 ML BOTTLE PO PRN (21:18)
[2019-10-22] MEDS ORDERED: MAG HYDROX/AL HYDROX/SIMETH 30 ML UNIT-DOSE CUP PO PRN (21:18)
[2019-10-22] MEDS ORDERED: ACETAMINOPHEN 325 MG TABLET (FP) PO PRN ×2 (21:18)
[2019-10-22] MEDS ORDERED: BISMUTH SUBSALICYLATE 524 MG/30 ML UD PO PRN (21:18)
[2019-10-22] MEDS ORDERED: MENTHOL/PHENOL 1 EACH UD MM PRN (21:18)
[2019-10-22] MEDS ORDERED: MAGNESIUM HYDROX 2400MG/30ML ORAL SUSPENSION 30 ML CUP PO PRN (21:18)
[2019-10-22] MEDS ORDERED: MELATONIN 5 MG TABLETS PO PRN (21:18)
[2019-10-22] MEDS ORDERED: ALBUTEROL SO4 8 GM HFA INHALER IH PRN (21:18)
[2019-10-22] MEDS: diazePAM 5 MG TABLET PO SCH (22:27)
[2019-10-22] MEDS: THIAMINE HCL 100 MG TABLET (FP) PO SCH (22:42)
[2019-10-23] MEDS: diazePAM 5 MG TABLET PO SCH ×3 (05:40→22:17)
--- NOTE | 2019-10-23 09:50 | PN ---
BHS CIWA - CIWA Score Nausea/Vomitin-Mild Nausea/No Vomiting Muscle Tremors: 2 Anxiety: 2 Agitation: 3 Paroxysmal Sweats: 3 Orientation: 0-Oriented Tacttile Disturbances: 0-None Auditory Disturbances: 0-None Visual Disturbances: 0-None Headache: 1-Very Mild CIWA-Ar Total Score: 12 BHS Progress Note (SOAP) Subjective: pt here for alcohol use disorder detox treatment, on methadone MAT- 100mg. Order written today O: Vital Signs - 24 hr 10/22/19 10/22/19 10/23/19 19:10 22:15 00:47 Temperature 98.5 F 97.9 F Pulse Rate 69 70 Respiratory 16 18 18 Rate Blood Pressure 97/63 109/59 L 10/23/19 10/23/19 06:00 09:46 Temperature 97.9 F 97.4 F L Pulse Rate 72 92 H Respiratory 18 18 Rate Blood Pressure 131/87 104/66 awake alert, walking, a bit restless a/p: continue alcohol detox protocol methadone MAT for OUD
[2019-10-23] MEDS ORDERED: METHADONE HCL 10 MG TABLET PO ONE (10:00)
[2019-10-23] MEDS ORDERED: METHADONE HCL 10 MG TABLET ONE (10:22)
[2019-10-23] MEDS ORDERED: METHADONE HCL 40 MG DISPERSABLE TABLET ONE (10:23)
[2019-10-23] MEDS: diazePAM 5 MG TABLET PO PRN (10:27)
[2019-10-23] MEDS: PRENATAL VITAMINS W/ FOLIC ACID TABLET (FP) PO SCH (10:27)
[2019-10-23] MEDS ORDERED: METHADONE 80 MG, METHADONE 20 MG PO ONE (10:30)
[2019-10-23 10:56] LABS: BILIRUBIN,TOTAL 0.1 mg/dL (0.2-1); BLOOD UREA NITROGEN 11.8 mg/dL (7-18); CALCIUM 8.6 mg/dL (8.5-10.1); CREATININE 0.7 mg/dL (0.55-1.3); POTASSIUM 4.1 mmol/L (3.5-5.1); TOT PROT 6.5 g/dl (6.4-8.2)
[2019-10-23 10:58] LABS: HEMATOCRIT 34.9 % (35.4-49); HEMOGLOBIN 11.3 GM/dL (11.7-16.9); MCH 26.6 pg (25.7-33.7); MCHC 32.4 g/dl (32.0-35.9); MEAN PLT VOLUME 8.1 fl (7.5-11.1); PLATELET COUNT 213 K/MM3 (134-434); RBC 4.26 M/mm3 (4.00-5.60); WHITE BLOOD COUNT 5.2 K/mm3 (4.0-10.0)
--- NOTE | 2019-10-23 15:16 | CONSULT ---
[facility] Psychiatric Consult - Data Date of interview: 10/23/19 Admission source: [facility] Identifying data: Readmission to [facility] for this 54 y/o male self- referred for detoxification (RETA issues : heroin, cocaine, cannabis/K2, alcohol , nicotine). Interviewed at [address] [place] [address]. Patient is single, father of four, homeless , unemployed and supported on welfare. Substance Abuse History: Discussed with the patient. Details in current [facility] report as follows : Smoking history: Current every day smoker. Have you smoked in the past 12 months: Yes. Aproximately how many cigarettes per day: 20. Cigars Per Day: 0. Hx Chewing Tobacco Use: No. Initiated information on smoking cessation: Yes. 'Breaking Loose' booklet given: 10/22/19. - Substances abused. Alcohol. Substance route: Oral. Frequency: Daily. Amount used: 3 cups vodka. Age of first use: 25. Date of last use: 10/21/19. Heroin. Substance route: Injection. Frequency: Daily. Amount used: 4 bags. Age of first use: 13. Date of last use: 10/21/19. Cocaine. Substance route: Injection. Frequency: Daily. Amount used: 2 grams. Age of first use: 25. Date of last use: 10/15/19. Marijuana/Hashish. Substance route: Smoking. Frequency: Daily. Amount used: 10$. Age of first use: 19. Date of last use: 10/15/19. K2/Spice. Substance route: Smoking. Frequency : Daily. Amount used: 5$. Age of first use: 54. Date of last use: 10/21/19 Medical History: Medical profile is remarkable for hepatitis C, bronchial asthma and antecedent of withdrawal-related seizures. Psychiatric History: Patient endorses a history of " more than 15 " psychiatric hospitalizations. First contact with Psychiatry occurred more than 10 years ago (diagnosed at the time with post-traumatic stress disorder, bipolar disorder versus schizophrenia). Mr Alejo is currently seeing Dr Coto, psychiatrist at [facility] in the [place]. Patient is maintained on a regimen of lexapro 20 mg/day + zyprexa 20 mg/hs + klonopin 2 mg/bid + ambien 10 mg/hs. He is also on methadone maintenance (100 mg/day) at the [facility]-M[facility] program. Patient reports a history of two serious suicide attempts (wrist-cutting in 2003 + hanging in 1988). Physical/Sexual Abuse/Trauma History: Not discussed. Patient declines. Additional Comment: Urine drug screen results: THC-Marijuana, ALCIRA-Cocaine, MOP- Opiates, MTD-Methadone, BZO-Benzodiazepines. Noted. Mental Status Exam - Mental Status Exam Alert and Oriented to: Time, Place, Person Cognitive Function: Good Patient Appearance: Well Groomed (covered with tattoos : neck, arms and forearms ) Mood: Nervous, Anxious, Irritable Affect: Mood Congruent, Constricted Patient Behavior: Inappropriate (medication-seeking), Cooperative Speech Pattern: Clear Voice Loudness: Normal Thought Process: Goal Oriented Thought Disorder: Not Present Hallucinations: Denies Suicidal Ideation: Denies Homicidal Ideation: Denies Insight/Judgement: Poor Sleep: Poorly, Difficulty falling asleep Appetite: Good Gait/Station: Normal (walks independently) Psychiatric Findings - Problem List ([place] 1, 2,3) (1) Alcohol dependence with uncomplicated withdrawal Current Visit: Yes Status: Acute (2) Opioid dependence on agonist therapy Current Visit: Yes Status: Chronic (3) Cannabis dependence Current Visit: Yes Status: Chronic (4) Cocaine dependence Current Visit: Yes Status: Chronic Qualifiers: Substance use status: uncomplicated Qualified Code(s): F14.20 - Cocaine dependence, uncomplicated (5) Nicotine dependence Current Visit: Yes Status: Chronic (6) Substance induced mood disorder Current Visit: Yes Status: Chronic (7) History of posttraumatic stress disorder (PTSD) Current Visit: Yes Status: Chronic Comment: Self-report. (8) History of bipolar disorder Current Visit: Yes Status: Chronic Comment: Self-report. (9) Insomnia Current Visit: Yes Status: Acute - Initial Treatment Plan Initial Treatment Plan: Psychoeducation. Records ([facility]) are revisited. Detoxification. Medications reconciled : zyprexa 10 mg po hs (start date : ) + lexapro 20 mg po daily. Insomnia is addressed with melatonin at bedtime. Side effects/benefits of these medications are discussed with the patient. Mr Alejo gave verbal consent to MD. Bailey.
[2019-10-23] MEDS: IBUPROFEN 400 MG TABLET (FP) PO PRN (19:46)
[2019-10-23] MEDS: THIAMINE HCL 100 MG TABLET (FP) PO SCH (22:18)
[2019-10-24] MEDS ORDERED: METHADONE HCL 10 MG TABLET ONE (04:05)
[2019-10-24] MEDS ORDERED: METHADONE HCL 40 MG DISPERSABLE TABLET ONE (04:05)
[2019-10-24] MEDS: METHADONE 80 MG, METHADONE 20 MG PO SCH (05:31)
[2019-10-24] MEDS: diazePAM 5 MG TABLET PO SCH ×2 (05:31→19:08)
[2019-10-24] MEDS ORDERED: METHADONE HCL 10 MG TABLET PO SCH (06:00)
[2019-10-24] MEDS ORDERED: NICOTINE POLACRILEX 4 MG GUM BUC PRN (06:54)
[2019-10-24] MEDS ORDERED: DICYCLOMINE HCL 10 MG CAPSULE PO ONE (09:17)
[2019-10-24] MEDS ORDERED: NICOTINE 21 MG/24 HOURS TOPICAL PATCH TD SCH (10:00)
[2019-10-24] MEDS ORDERED: ESCITALOPRAM OXALATE 20 MG TABLET (FP) PO SCH (10:00)
[2019-10-24] MEDS ORDERED: OLANZapine 7.5 MG TABLET PO SCH (10:00)
[2019-10-24] MEDS: PRENATAL VITAMINS W/ FOLIC ACID TABLET (FP) PO SCH (10:15)
[2019-10-24] MEDS: diazePAM 5 MG TABLET PO PRN (10:15)
[2019-10-24] MEDS ORDERED: ESCITALOPRAM OXALATE 10 MG TABLET (FP) ONE (10:17)
--- NOTE | 2019-10-24 11:42 | PN ---
S CIWA - CIWA Score Nausea/Vomitin-No Nausea/No Vomiting Muscle Tremors: 3 Anxiety: 2 Agitation: 2 Paroxysmal Sweats: 2 Orientation: 0-Oriented Tacttile Disturbances: 0-None Auditory Disturbances: 0-None Visual Disturbances: 0-None Headache: 0-None Present CIWA-Ar Total Score: 9 BHS Progress Note (SOAP) Subjective: stomach cramping sweats irritable Objective: 10/24/19 11:38 Vital Signs Temperature 97.5 F L 10/24/19 09:24 Pulse Rate 92 H 10/24/19 09:24 Respiratory Rate 18 10/24/19 09:24 Blood Pressure 133/82 10/24/19 09:24 O2 Sat by Pulse Oximetry (%) Laboratory Tests 10/23/19 10/23/19 07:50 07:50 WBC 5.2 RBC 4.26 Hgb 11.3 L Hct 34.9 L MCV 82.0 MCH 26.6 MCHC 32.4 RDW 15.0 Plt Count 213 D MPV 8.1 Sodium 140 Potassium 4.1 Chloride 107 Carbon Dioxide 29 Anion Gap 5 L BUN 11.8 Creatinine 0.7 Est GFR (CKD-EPI)AfAm 123.13 Est GFR (CKD-EPI)NonAf 106.24 Random Glucose 89 Calcium 8.6 Total Bilirubin 0.1 L AST 26 ALT 26 Alkaline Phosphatase 112 Total Protein 6.5 Albumin 3.0 L aaox3 ambulating no acute distress Assessment: 10/24/19 11:39 withdrawals abdomen assessed; +BS all four quadrants, pt states has normal bowl movement. Pt believes gas. gas x ordered, bentyl ordered will reassess. Plan: continue detox MOM/mylanta/bently/gas x ordered prn will reassess
[2019-10-24] MEDS ORDERED: SIMETHICONE 80 MG TAB.CHEW (FP) PO PRN (11:43)
[2019-10-24] MEDS: IBUPROFEN 400 MG TABLET (FP) PO PRN (18:52)
[2019-10-24] MEDS ORDERED: OLANZapine 10 MG TABLET PO SCH (22:00)
[2019-10-24] MEDS: THIAMINE HCL 100 MG TABLET (FP) PO SCH (22:09)
[2019-10-25] MEDS ORDERED: METHADONE HCL 10 MG TABLET ONE (04:30)
[2019-10-25] MEDS ORDERED: METHADONE HCL 40 MG DISPERSABLE TABLET ONE (04:30)
[2019-10-25 05:53] VITALS: TEMP 97.5
[2019-10-25] MEDS ORDERED: diazePAM 5 MG TABLET PO ONE (06:00)
[2019-10-25] MEDS: METHADONE 80 MG, METHADONE 20 MG PO SCH (06:16)
[2019-10-25] MEDS ORDERED: ESCITALOPRAM OXALATE 10 MG TABLET (FP) ONE (09:14)
[2019-10-25 09:48] VITALS: BP 104/61; PULSE 87
--- NOTE | 2019-10-25 09:48 | DS ---
[facility] Detox Discharge Summary Admission Date: 10/22/19 Discharge Date: 10/25/19 - History Present History: Alcohol Dependence, Cannabis Dependence, Cocaine Dependence, MMTP - Physical Exam Results Vital Signs: Vital Signs Temperature 97.5 F L 10/25/19 05:52 Pulse Rate 84 10/25/19 05:52 Respiratory Rate 18 10/25/19 05:52 Blood Pressure 108/59 L 10/25/19 05:52 O2 Sat by Pulse Oximetry (%) Pertinent Admission Physical Exam Findings: pt arrived in withdrawals Vital Signs Temperature 97.5 F L 10/25/19 05:52 Pulse Rate 84 10/25/19 05:52 Respiratory Rate 18 10/25/19 05:52 Blood Pressure 108/59 L 10/25/19 05:52 O2 Sat by Pulse Oximetry (%) Laboratory Tests 10/23/19 10/23/19 07:50 07:50 WBC 5.2 RBC 4.26 Hgb 11.3 L Hct 34.9 L MCV 82.0 MCH 26.6 MCHC 32.4 RDW 15.0 Plt Count 213 D MPV 8.1 Sodium 140 Potassium 4.1 Chloride 107 Carbon Dioxide 29 Anion Gap 5 L BUN 11.8 Creatinine 0.7 Est GFR (CKD-EPI)AfAm 123.13 Est GFR (CKD-EPI)NonAf 106.24 Random Glucose 89 Calcium 8.6 Total Bilirubin 0.1 L AST 26 ALT 26 Alkaline Phosphatase 112 Total Protein 6.5 Albumin 3.0 L today pt is aaox3 ambulating no acute distress no s/s of withdrawals - Treatment Hospital Course: Detox Protocol Followed, Detoxed Safely, Responded well, Discharged Condition Good, Rehab Referral Accepted - Medication Discharge Medications: Ambulatory Orders Albuterol Sulfate Inhaler - [Ventolin Hfa Inhaler -] 2 inh PO PRN PRN 09/19/19 Escitalopram Oxalate [Lexapro -] 20 mg PO DAILY 10/22/19 Olanzapine [Zyprexa] 15 mg PO DAILY 10/22/19 levETIRAcetam [Keppra -] 100 mg PO BID 10/22/19 - Diagnosis (1) Alcohol dependence with uncomplicated withdrawal Current Visit: Yes Status: Chronic (2) Insomnia Current Visit: Yes Status: Acute (3) Cannabis dependence Current Visit: Yes Status: Chronic (4) Cocaine dependence Current Visit: Yes Status: Chronic Qualifiers: Substance use status: uncomplicated Qualified Code(s): F14.20 - Cocaine dependence, uncomplicated (5) History of bipolar disorder Current Visit: Yes Status: Chronic (6) History of posttraumatic stress disorder (PTSD) Current Visit: Yes Status: Chronic (7) Methadone maintenance therapy patient Current Visit: Yes Status: Chronic (8) Nicotine dependence Current Visit: Yes Status: Chronic Qualifiers: Nicotine product type: cigarettes Substance use status: uncomplicated Qualified Code(s): F17.210 - Nicotine dependence, cigarettes, uncomplicated (9) Opioid dependence on agonist therapy Current Visit: Yes Status: Chronic (10) Substance induced mood disorder Current Visit: Yes Status: Chronic (11) Fall Current Visit: No Status: Acute Qualifiers: Encounter type: initial encounter Qualified Code(s): W19.XXXA - Unspecified fall, initial encounter (12) Schizophrenia Current Visit: No Status: Acute (13) Substance-induced anxiety disorder Current Visit: No Status: Acute (14) Substance-induced sleep disorder Current Visit: No Status: Acute (15) Use of cane as ambulatory aid Current Visit: No Status: Acute (16) Asthma Current Visit: No Status: Chronic Qualifiers: Asthma severity: mild Asthma persistence: intermittent (17) Hepatitis C Current Visit: No Status: Chronic (18) IVDU (intravenous drug user) Current Visit: No Status: Chronic (19) Nicotine dependence Current Visit: No Status: Chronic Qualifiers: Nicotine product type: cigarettes Substance use status: uncomplicated Qualified Code(s): F17.210 - Nicotine dependence, cigarettes, uncomplicated (20) PTSD (post-traumatic stress disorder) Current Visit: No Status: Chronic - AMA Did Patient Leave Against Medical Advice: No
--- NOTE | 2019-10-25 12:02 | EKG ---
Test Reason : Blood Pressure : / mmHG Vent. Rate : 062 BPM Atrial Rate : 062 BPM P-R Int : 150 ms QRS Dur : 086 ms QT Int : 464 ms P-R-T Axes : 063 075 068 degrees QTc Int : 470 ms NORMAL SINUS RHYTHM WITH SINUS ARRHYTHMIA NORMAL ECG NO PREVIOUS ECGS AVAILABLE Confirmed by BISHOP SARAH MD ([id number]) on 10/25/2019 12:02:02 PM Referred By: Confirmed By:BISHOP SARAH MD
== END 2019-10-25 09:05 | disposition home or self-care (01) | DRG 773 ==
LOC: YASAS 16:35 → Y6N 21:02
PROVIDERS: ADMIT Allergy & Immunology; ATTEND Allergy & Immunology
PROC: HZ2ZZZZ Detoxification Services for Substance Abuse Treatment (ICD-10-PCS; principal; 2019-10-22)
DX: F10.230 Alcohol dependence with withdrawal, uncomplicated (principal); F11.20 Opioid dependence, uncomplicated; F14.20 Cocaine dependence, uncomplicated; F12.20 Cannabis dependence, uncomplicated; F17.210 Nicotine dependence, cigarettes, uncomplicated; F19.280 Other psychoactive substance dependence with psychoactive substance-induced anxiety disorder; F19.282 Other psychoactive substance dependence with psychoactive substance-induced sleep disorder; F19.24 Other psychoactive substance dependence with psychoactive substance-induced mood disorder; F20.9 Schizophrenia, unspecified; F31.9 Bipolar disorder, unspecified; F43.10 Post-traumatic stress disorder, unspecified; B18.2 Chronic viral hepatitis C; G47.00 Insomnia, unspecified; Z86.69 Personal history of other diseases of the nervous system and sense organs; R29.6 Repeated falls; Z91.81 History of falling; Z99.89 Dependence on other enabling machines and devices; Z59.0 Homelessness
CPT/HCPCS: 36415; 80053; 85027; 86593; 93005; 93010

== ENCOUNTER 2020-06-02 16:37 | Inpatient (IN) | payer BC ==
[2020-06-02 18:25] VITALS: BMI 25.9
--- NOTE | 2020-06-02 21:36 | HP ---
CIWA Score Nausea/Vomitin-No Nausea/No Vomiting Muscle Tremors: 5 Anxiety: 5 Agitation: 5 Paroxysmal Sweats: 4-Forehead w/Sweat Beads Orientation: 3-Disoriented Date>2 days Tacttile Disturbances: 0-None Auditory Disturbances: 0-None Visual Disturbances: 0-None Headache: 3-Moderate CIWA-Ar Total Score: 25 - Admission Criteria OASAS Guidelines: Admission for Medically Managed Detox: Requires at least one of the followin. CIWA greater than 12 2. Seizures within the past 24 hours 3. Delirium tremens within the past 24 hours 4. Hallucinations within the past 24 hours 5. Acute intervention needed for co occurring medical disorder 6. Acute intervention needed for co occurring psychiatric disorder 7. Severe withdrawal that cannot be handled at a lower level of care (continued vomiting, continued diarrhea, abnormal vital signs) requiring intravenous medication and/or fluids 8. Patient presents the following: CIWA greater than 12 Admission Criteria Met: Admission criteria met Admitting History and Physical - Smoking History Smoking history: Current every day smoker Have you smoked in the past 12 months: Yes Aproximately how many cigarettes per day: 20 - Alcohol/Substance Use Hx Alcohol Use: Yes Admission ROS [facility] Chief Complaint: seeking alcohol detox 2/2 withdrawal sx's Allergies/Adverse Reactions: Allergies Allergy/AdvReac Type Severity Reaction Status Date / Time No Known Allergies Allergy Verified 10/22/19 18:59 History of Present Illness: 55 y.o. male here for alcohol detox. self referred. known to program. last here 10/22/19 for detox. client reports relapsing right after dc. drinking daily all day. 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 he is also on mmtp at [facility]. reported dose 120 mg. last dose today pending verification. he still abusing heroin using 3 bundles daily via ivdu. he speed balls with cocaine. denies any clean time in the past 12 months. lives with family, unemployed, denies legals Exam Limitations: No Limitations - Ebola screening Have you traveled outside of the country in the last 21 days: No Have you had contact with anyone from an Ebola affected area: No Have you been sick,other than usual withdrawal symptoms: No Do you have a fever: No - Review of Systems Constitutional: Chills, Loss of Appetite, Malaise, Night Sweats, Changes in sleep EENT: reports: Dental Problems (dentures) Respiratory: reports: Shortness of Breath Cardiac: reports: No Symptoms Reported GI: reports: Nausea, Poor Fluid Intake, Abdominal cramping : reports: No Symptoms Reported Musculoskeletal: reports: No Symptoms Reported Integumentary: reports: Sweating, Other (track centeno) Neuro: reports: Seizure (r/t alcohol withdrawal. last episode 6 months ago), Other (black outs) Endocrine: reports: Other (pre dm) Hematology: reports: No Symptoms Reported Psychiatric: reports: Orientated x3, Anxious, Depressed Other Systems: Reviewed and Negative Patient History - Patient Medical History Hx Anemia: No Hx Asthma: Yes Hx Chronic Obstructive Pulmonary Disease (COPD): No Hx Cancer: No Hx Cardiac Disorders: No Hx Congestive Heart Failure: No Hx Hypertension: No Hx Hypercholesterolemia: No Hx Pacemaker: No HX Cerebrovascular Accident: No Hx Seizures: No Hx Dementia: No Hx Diabetes: No Hx Gastrointestinal Disorders: No Hx Liver Disease: Yes (hapatitis c no treatment) Hx Genitourinary Disorders: No Hx Sexually Transmitted Disorders: No Hx Renal Disease (ESRD): No Hx Thyroid Disease: No Hx Human Immunodeficiency Virus (HIV): No Hx Hepatitis C: Yes (no treatment) Hx Depression: Yes Hx Suicide Attempt: No Hx Bipolar Disorder: Yes (non compliance with medication) Hx Schizophrenia: No - Patient Surgical History Past Surgical History: No Hx Neurologic Surgery: No Hx Cataract Extraction: No Hx Cardiac Surgery: No Hx Lung Surgery: No Hx Breast Surgery: No Hx Breast Biopsy: No Hx Abdominal Surgery: No Hx Appendectomy: No Hx Cholecystectomy: No Hx Genitourinary Surgery: No Hx Section: No Hx Orthopedic Surgery: No Anesthesia Reaction: No - PPD History Previous Implant?: Yes Documented Results: Negative w/proof Implanted On Prior [facility] Admission?: Yes Date: 09/21/19 Results: no record PPD to be Administered?: Yes - Smoking Cessation Smoking history: Current every day smoker Have you smoked in the past 12 months: Yes Aproximately how many cigarettes per day: 30 Cigars Per Day: 0 Hx Chewing Tobacco Use: No Initiated information on smoking cessation: Yes 'Breaking Loose' booklet given: 06/02/20 - Substance & Tx. History Hx Alcohol Use: Yes Hx Substance Use: Yes Substance Use Type: Alcohol, Cocaine, Prescribed (methadone) Hx Substance Use Treatment: Yes ([facility]) - Substances abused Heroin Substance route: Injection Frequency: Daily Amount used: 30 Age of first use: 16 Date of last use: 06/01/20 Alcohol Other (specify): vodka Substance route: Oral Frequency: Daily Amount used: 2 liter Age of first use: 21 Date of last use: 06/01/20 Admission Physical Exam [facility] - Vital Signs Vital Signs: Vital Signs - 24 hr 06/02/20 18:23 Temperature 97.6 F Pulse Rate 84 Respiratory 18 Rate Blood Pressure 113/75 - Physical General Appearance: Yes: Moderate Distress, Tremorous, Sweating, Anxious HEENTM: Yes: EOMI, Normocephalic, Normal Voice, PAUL, Pharynx Normal, Nasal Congestion, Other (missing teeth. top dentures) Respiratory: Yes: Chest Non-Tender, Lungs Clear, Normal Breath Sounds, No Respiratory Distress, No Accessory Muscle Use Neck: Yes: No masses,lesions,Nodules, Supple, Trachea in good position Breast: Yes: Breasts Symetrical Cardiology: Yes: Regular Rhythm, Regular Rate, S1, S2 Abdominal: Yes: Normal Bowel Sounds, Non Tender, Soft Genitourinary: Yes: Within Normal Limits Back: Yes: Normal Inspection Musculoskeletal: Yes: full range of Motion, Gait Steady Extremities: Yes: Normal Capillary Refill (dirty nail beds), Normal Range of Motion, Non-Tender, Tremors Neurological: Yes: Alert, Motor Strength 5/5, Depressed Affect Integumentary: Yes: Cold (cool), Clammy, Track Centeno (hands/ arms) Lymphatic: Yes: Within Normal Limits - Diagnostic (1) Substance-induced anxiety disorder Current Visit: Yes Status: Suspected (2) Substance-induced sleep disorder Current Visit: Yes Status: Suspected (3) Alcohol dependence with uncomplicated withdrawal Current Visit: No Status: Chronic (4) Asthma Current Visit: Yes Status: Acute Qualifiers: Asthma severity: mild Asthma persistence: intermittent (5) Cocaine dependence Current Visit: Yes Status: Acute Qualifiers: Substance use status: uncomplicated Qualified Code(s): F14.20 - Cocaine dependence, uncomplicated (6) Hepatitis C Current Visit: Yes Status: Chronic Qualifiers: Viral hepatitis chronicity: chronic Hepatic coma status: without hepatic coma Qualified Code(s): B18.2 - Chronic viral hepatitis C (7) IVDU (intravenous drug user) Current Visit: Yes Status: Chronic (8) Nicotine dependence Current Visit: Yes Status: Chronic Qualifiers: Nicotine product type: cigarettes Substance use status: uncomplicated Qualified Code(s): F17.210 - Nicotine dependence, cigarettes, uncomplicated (9) Substance induced mood disorder Current Visit: Yes Status: Suspected Cleared for Admission S - Detox or Rehab [facility] Level of Care: Medically Managed Detox Regimen/Protocol: Librium Claeared for Rehab Admission: No Breathalyzer - Breathalyzer Breathalyzer: 0 Urine Drug Screen - Test Device Lot number: [id number] Expiration date: 07/24/21 - Control Is test valid?: Yes - Results Drug screen NEGATIVE: No Urine drug screen results: THC-Marijuana, ALCIRA-Cocaine, FEN-Fentanyl, MOP- Opiates, MTD-Methadone Inpatient Rehab Admission - Rehab Decision to Admit Inpatient rehab admission?: No
[2020-06-02] MEDS ORDERED: ACETAMINOPHEN 325 MG TABLET (FP) PO PRN ×2 (21:43)
[2020-06-02] MEDS ORDERED: NICOTINE POLACRILEX 2 MG GUM BUC PRN (21:43)
[2020-06-02] MEDS ORDERED: chlordiazePOXIDE HCL 25 MG CAPSULE PO PRN (21:43)
[2020-06-02] MEDS ORDERED: MENTHOL/PHENOL 1 EACH UD MM PRN (21:43)
[2020-06-02] MEDS ORDERED: BISMUTH SUBSALICYLATE 524 MG/30 ML UD PO PRN (21:43)
[2020-06-02] MEDS ORDERED: IBUPROFEN 400 MG TABLET (FP) PO PRN (21:43)
[2020-06-02] MEDS ORDERED: MAG HYDROX/AL HYDROX/SIMETH 30 ML UNIT-DOSE CUP PO PRN (21:43)
[2020-06-02] MEDS ORDERED: guaiFENesin 200 MG/10 ML 10 ML UNIT-DOSE CUPS PO PRN (21:43)
[2020-06-02] MEDS ORDERED: MAGNESIUM CITRATE 300 ML BOTTLE PO PRN (21:43)
[2020-06-02] MEDS ORDERED: ONDANSETRON *ODT* 4 MG TABLET SL ONE (21:43)
[2020-06-02] MEDS ORDERED: P-EPHED 60MG/TRIPROLIDI 2.5MG TABLET PO PRN (21:43)
[2020-06-02] MEDS ORDERED: MAGNESIUM HYDROX 2400MG/30ML ORAL SUSPENSION 30 ML CUP PO PRN (21:43)
[2020-06-02] MEDS ORDERED: DICYCLOMINE HCL 10 MG CAPSULE PO PRN (21:43)
[2020-06-02] MEDS: hydrOXYzine PAMOATE 25 MG CAPSULE (FP) PO SCH (23:03)
[2020-06-02] MEDS: THIAMINE HCL 100 MG TABLET (FP) PO SCH (23:03)
[2020-06-02] MEDS: chlordiazePOXIDE HCL 25 MG CAPSULE PO SCH (23:03)
[2020-06-02] MEDS: MELATONIN 5 MG TABLETS PO SCH (23:03)
[2020-06-03] MEDS: chlordiazePOXIDE HCL 25 MG CAPSULE PO SCH ×4 (06:19→22:10)
[2020-06-03] MEDS: hydrOXYzine PAMOATE 25 MG CAPSULE (FP) PO SCH ×5 (06:19→22:10)
[2020-06-03] MEDS: PRENATAL VITAMINS W/ FOLIC ACID TABLET (FP) PO SCH (10:25)
[2020-06-03] MEDS: NICOTINE 21 MG/24 HOURS TOPICAL PATCH TD SCH (10:25)
[2020-06-03] MEDS: METHADONE HCL 40 MG DISPERSABLE TABLET PO SCH (11:14)
--- NOTE | 2020-06-03 11:14 | CONSULT ---
[facility] Psychiatric Consult - Data Date of interview: 06/03/20 Admission source: [facility] Identifying data: Revisit to [facility] and admission to [address] [place] [address] for this 55 y/o male self-referred for detoxification treatment. RETA issues : heroin, cocaine, cannabis/K2, alcohol, nicotine. Patient is single, father of four, domiciled, unemployed and supported on welfare. Substance Abuse History: Discussed with the patient. RETA profile as follows : Smoking history: Current every day smoker. Have you smoked in the past 12 months: Yes. Aproximately how many cigarettes per day: 30. Cigars Per Day: 0. Hx Chewing Tobacco Use: No. Initiated information on smoking cessation: Yes. 'Breaking Loose' booklet given: 06/02/20. - Substance & Tx. History. Hx Alcohol Use: Yes. Hx Substance Use: Yes. Substance Use Type: Alcohol, Cocaine, Prescribed (methadone). Hx Substance Use Treatment: Yes ([facility]). - Substances abused. Heroin. Substance route: Injection. Frequency: Daily. Amount used: 30. Age of first use: 16. Date of last use: 06/01/20. Alcohol. Other (specify): vodka. Substance route: Oral. Frequency: Daily. Amount used: 2 liter. Age of first use: 21. Date of last use: 06/01/20 Medical History: Medical profile is remarkable for hepatitis C, bronchial asthma and antecedent of withdrawal-related seizures. Patient ambulates with a cane. Psychiatric History: Patient continue to endorse history of multiple psychiatric hospitalizations. His first encounter with a mental health care provider occurred " more than 10 years ago " at an unnamed facility where he received se veral psychiatric diagnoses (post-traumatic stress disorder, bipolar disorder, schizophrenia). Mr Alejo is currently seeing a psychiatrist at the [facility] (on methadone maintenance : 120 mg/day) in the [place]. Patient reports his current medications as lexapro + zyprexa (doses not recalled). He admits to a history of two serious suicide attempts (wrist-cutting in 2003 + hanging in 1988). Physical/Sexual Abuse/Trauma History: Patient denies. Additional Comment: Urine drug screen results: THC-Marijuana, ALCIRA-Cocaine, FEN- Fentanyl, MOP-Opiates, MTD-Methadone. Noted. Mental Status Exam - Mental Status Exam Alert and Oriented to: Time, Place, Person Cognitive Function: Grossly Intact Patient Appearance: Unkempt, Disheveled (covered with tattoos : neck, arms, forearms) Mood: Withdrawn Affect: Mood Congruent, Constricted Patient Behavior: Sedated (mildly sedated), Fatigued Speech Pattern: Delayed, Slurred Voice Loudness: Normal Thought Process: Goal Oriented Hallucinations: Denies Suicidal Ideation: Denies Homicidal Ideation: Denies Insight/Judgement: Poor Sleep: Well Appetite: Good (noted empty foodtray at bedside; patient is still asking for additional food) Gait/Station: Other (observed making a few steps in his room with his cane) Psychiatric Findings - Problem List (Hood 1, 2,3) (1) Alcohol dependence with uncomplicated withdrawal Current Visit: Yes Status: Acute (2) Opioid dependence on agonist therapy Current Visit: Yes Status: Chronic (3) Cannabis dependence Current Visit: Yes Status: Chronic (4) Cocaine dependence Current Visit: Yes Status: Chronic Qualifiers: Substance use status: uncomplicated Qualified Code(s): F14.20 - Cocaine dependence, uncomplicated (5) Nicotine dependence Current Visit: Yes Status: Chronic Qualifiers: Nicotine product type: cigarettes Substance use status: uncomplicated Qualified Code(s): F17.210 - Nicotine dependence, cigarettes, uncomplicated (6) Substance induced mood disorder Current Visit: Yes Status: Chronic (7) History of bipolar disorder Current Visit: Yes Status: Chronic Comment: Self-report. (8) History of posttraumatic stress disorder (PTSD) Current Visit: Yes Status: Chronic Comment: Self-report. (9) Insomnia Current Visit: Yes Status: Chronic - Initial Treatment Plan Initial Treatment Plan: Psychoeducation. Sleep hygiene. Detoxification is in progress. Resumed : olanzapine 10 mg po hs (reduced dose). Side effects/benefits discussed with the patient. Mr Alejo gave consent (verbal) to . Staff Analyst attempted to contact [facility] : closed. Observation.
[2020-06-03 11:41] LABS: HEMATOCRIT 36.2 % (35.4-49); HEMOGLOBIN 11.8 GM/dL (11.7-16.9); MCHC 32.6 g/dl (32.0-35.9); MEAN CELL VOLUME 82.8 fl (80-96); MEAN PLT VOLUME 8.3 fl (7.5-11.1); PLATELET COUNT 237 K/MM3 (134-434); RBC 4.37 M/mm3 (4.00-5.60); RDW 15.4 % (11.9-15.9); WHITE BLOOD COUNT 6.3 K/mm3 (4.0-10.0)
[2020-06-03 11:48] LABS: ALBUMIN 3.3 g/dl (3.4-5.0); BILIRUBIN,TOTAL 0.5 mg/dL (0.2-1); BLOOD UREA NITROGEN 15.7 mg/dL (7-18); CALCIUM 9.6 mg/dL (8.5-10.1); CREATININE 0.9 mg/dL (0.55-1.3); POTASSIUM 4.1 mmol/L (3.5-5.1); TOT PROT 7.5 g/dl (6.4-8.2)
--- NOTE | 2020-06-03 13:07 | PN ---
[facility] CIWA - CIWA Score Nausea/Vomitin-No Nausea/No Vomiting Muscle Tremors: 3 Anxiety: 3 Agitation: 2 Paroxysmal Sweats: 2 Orientation: 0-Oriented Tacttile Disturbances: 0-None Auditory Disturbances: 0-None Visual Disturbances: 2-Mild Sensitivity Headache: 0-None Present CIWA-Ar Total Score: 12 S Progress Note (SOAP) Subjective: Complaints of agitation, sweats, anxiety and light sensitivity. Objective: 06/03/20 13:05 Vital Signs 06/03/20 06/03/20 05:18 09:00 Temperature 98 F 97.3 F L Pulse Rate 76 73 Respiratory 16 18 Rate Blood Pressure 109/69 110/64 O2 Sat by Pulse 98 Oximetry (%) Laboratory Last Values WBC 6.3 K/mm3 (4.0-10.0) 06/03/20 07:55 RBC 4.37 M/mm3 (4.00-5.60) 06/03/20 07:55 Hgb 11.8 GM/dL (11.7-16.9) 06/03/20 07:55 Hct 36.2 % (35.4-49) 06/03/20 07:55 MCV 82.8 fl (80-96) 06/03/20 07:55 MCH 27.0 pg (25.7-33.7) 06/03/20 07:55 MCHC 32.6 g/dl (32.0-35.9) 06/03/20 07:55 RDW 15.4 % (11.9-15.9) 06/03/20 07:55 Plt Count 237 K/MM3 (134-434) 06/03/20 07:55 MPV 8.3 fl (7.5-11.1) 06/03/20 07:55 Sodium 140 mmol/L (136-145) 06/03/20 07:55 Potassium 4.1 mmol/L (3.5-5.1) 06/03/20 07:55 Chloride 106 mmol/L (98-107) 06/03/20 07:55 Carbon Dioxide 26 mmol/L (21-32) 06/03/20 07:55 Anion Gap 8 MMOL/L (8-16) 06/03/20 07:55 BUN 15.7 mg/dL (7-18) 06/03/20 07:55 Creatinine 0.9 mg/dL (0.55-1.3) 06/03/20 07:55 Est GFR (CKD-EPI)AfAm 110.27 06/03/20 07:55 Est GFR (CKD-EPI)NonAf 95.14 06/03/20 07:55 Random Glucose 119 mg/dL (74-106) H 06/03/20 07:55 Calcium 9.6 mg/dL (8.5-10.1) 06/03/20 07:55 Total Bilirubin 0.5 mg/dL (0.2-1) 06/03/20 07:55 AST 79 U/L (15-37) H 06/03/20 07:55 ALT 49 U/L (13-61) 06/03/20 07:55 Alkaline Phosphatase 134 U/L (45-117) H 06/03/20 07:55 Total Protein 7.5 g/dl (6.4-8.2) 06/03/20 07:55 Albumin 3.3 g/dl (3.4-5.0) L 06/03/20 07:55 Syphilis Serology Non-reactive (NONREACTIVE) 06/03/20 07:55 Labs noted, COVID 19 testing pending. Assessment: 06/03/20 13:06 Alert and oriented x3, in no acute respiratory distress. Full ROM, ambulatory on unit with cane. Withdrawal symptoms. Plan: Continue detox protocol.
[2020-06-03] MEDS: METHOCARBAMOL 500 MG TABLET PO PRN (18:21)
[2020-06-03] MEDS: MELATONIN 5 MG TABLETS PO SCH (22:10)
[2020-06-03] MEDS: THIAMINE HCL 100 MG TABLET (FP) PO SCH (22:10)
[2020-06-03] MEDS: OLANZapine 10 MG TABLET PO SCH (22:10)
[2020-06-04] MEDS: METHADONE HCL 40 MG DISPERSABLE TABLET PO SCH (06:13)
[2020-06-04] MEDS: hydrOXYzine PAMOATE 25 MG CAPSULE (FP) PO SCH ×5 (06:13→22:17)
[2020-06-04] MEDS: chlordiazePOXIDE HCL 25 MG CAPSULE PO SCH ×4 (06:13→22:17)
[2020-06-04] MEDS: PRENATAL VITAMINS W/ FOLIC ACID TABLET (FP) PO SCH (10:40)
[2020-06-04] MEDS: NICOTINE 21 MG/24 HOURS TOPICAL PATCH TD SCH (10:40)
--- NOTE | 2020-06-04 14:16 | PN ---
[facility] CIWA - CIWA Score Nausea/Vomitin-Mild Nausea/No Vomiting Muscle Tremors: 3 Anxiety: 2 Agitation: 2 Paroxysmal Sweats: 3 Orientation: 0-Oriented Tacttile Disturbances: 0-None Auditory Disturbances: 0-None Visual Disturbances: 0-None Headache: 0-None Present CIWA-Ar Total Score: 11 [facility] Progress Note (SOAP) Subjective: Patient is very drowsy (in bed, easily arousable), went back to sleep Objective: 06/04/20 14:11 Last Vital Signs Temp Pulse Resp BP Pulse Ox 97.4 F L 75 19 97/59 L 100 06/04/20 12:49 06/04/20 12:49 06/04/20 12:49 06/04/20 12:49 06/04/20 12:49 Hypotension noted: encouraged PO water hydration, monitor b/p Laboratory Tests 06/03/20 06/03/20 06/03/20 07:55 07:55 07:55 WBC 6.3 RBC 4.37 Hgb 11.8 Hct 36.2 MCV 82.8 MCH 27.0 MCHC 32.6 RDW 15.4 Plt Count 237 MPV 8.3 Sodium 140 Potassium 4.1 Chloride 106 Carbon Dioxide 26 Anion Gap 8 BUN 15.7 Creatinine 0.9 Est GFR (CKD-EPI)AfAm 110.27 Est GFR (CKD-EPI)NonAf 95.14 Random Glucose 119 H Calcium 9.6 Total Bilirubin 0.5 AST 79 H ALT 49 Alkaline Phosphatase 134 H Total Protein 7.5 Albumin 3.3 L Syphilis Serology Non-reactive Labs reviewed: elevated LFTs (AST, Alk phos), serum gluc 119 (high) Assessment: 06/04/20 14:12 Withdrawal sxs Noted with hypotension, elevated LFTs and hyperglycemia Plan: Continue detox Encouraged PO water intake Hypotension: encouraged to drink more water Elevated LFTs: repeat AST, Alk phos Hyperglycemia: repeat fasting glucose, send A1c to r/o DM and prediabetes
[2020-06-04] MEDS: THIAMINE HCL 100 MG TABLET (FP) PO SCH (22:16)
[2020-06-04] MEDS: OLANZapine 10 MG TABLET PO SCH (22:17)
[2020-06-04] MEDS: MELATONIN 5 MG TABLETS PO SCH (22:17)
[2020-06-05] MEDS ORDERED: chlordiazePOXIDE HCL 10 MG CAPSULE PO PRN
[2020-06-05] MEDS: METHADONE HCL 40 MG DISPERSABLE TABLET PO SCH (05:28)
[2020-06-05] MEDS: chlordiazePOXIDE HCL 10 MG CAPSULE PO SCH ×4 (05:28→22:30)
[2020-06-05] MEDS: hydrOXYzine PAMOATE 25 MG CAPSULE (FP) PO SCH (05:28)
[2020-06-05] MEDS ORDERED: ONDANSETRON *ODT* 4 MG TABLET SL PRN (10:08)
--- NOTE | 2020-06-05 10:08 | PN ---
S CIWA - CIWA Score Nausea/Vomitin-No Nausea/No Vomiting Muscle Tremors: 2 Anxiety: 2 Agitation: 2 Paroxysmal Sweats: 2 Orientation: 0-Oriented Tacttile Disturbances: 0-None Auditory Disturbances: 0-None Visual Disturbances: 0-None Headache: 0-None Present CIWA-Ar Total Score: 8 [facility] Progress Note (SOAP) Subjective: nausea sweats anxiety shakes interrupted sleep Objective: 06/05/20 10:06 Vital Signs Temperature 97.5 F L 06/05/20 09:14 Pulse Rate 80 06/05/20 09:14 Respiratory Rate 16 06/05/20 09:14 Blood Pressure 96/61 06/05/20 09:14 O2 Sat by Pulse Oximetry (%) 99 06/05/20 05:36 Laboratory Tests 06/02/20 06/03/20 06/03/20 22:50 07:55 07:55 WBC 6.3 RBC 4.37 Hgb 11.8 Hct 36.2 MCV 82.8 MCH 27.0 MCHC 32.6 RDW 15.4 Plt Count 237 MPV 8.3 Sodium Potassium Chloride Carbon Dioxide Anion Gap BUN Creatinine Est GFR (CKD-EPI)AfAm Est GFR (CKD-EPI)NonAf Random Glucose Calcium Total Bilirubin AST ALT Alkaline Phosphatase Total Protein Albumin Syphilis Serology Non-reactive COVID-19 ([facility]) Not detected 06/03/20 07:55 WBC RBC Hgb Hct MCV MCH MCHC RDW Plt Count MPV Sodium 140 Potassium 4.1 Chloride 106 Carbon Dioxide 26 Anion Gap 8 BUN 15.7 Creatinine 0.9 Est GFR (CKD-EPI)AfAm 110.27 Est GFR (CKD-EPI)NonAf 95.14 Random Glucose 119 H Calcium 9.6 Total Bilirubin 0.5 AST 79 H ALT 49 Alkaline Phosphatase 134 H Total Protein 7.5 Albumin 3.3 L Syphilis Serology COVID-19 ([facility]) labs noted aaox3 ambulating no acute distress Assessment: 06/05/20 10:07 withdrawals Plan: continue detox zofran sl prn increase fluids lidocaine patch motrin 800mg tid prn
[2020-06-05] MEDS: NICOTINE 21 MG/24 HOURS TOPICAL PATCH TD SCH (11:12)
[2020-06-05] MEDS: PRENATAL VITAMINS W/ FOLIC ACID TABLET (FP) PO SCH (11:14)
[2020-06-05] MEDS: LIDOCAINE 5% TOPICAL PATCH TP SCH (11:15)
[2020-06-05 11:23] LABS: ALK PHOS 122 U/L (45-117); GLUCOSE,FASTING 126 mg/dL (74-106); SGOT/AST 63 U/L (15-37)
--- NOTE | 2020-06-05 11:36 | PN ---
S Progress Note Note: pt states he bumped his toe on the chair, witnessed by vice president of nursing. right toe assessed. pt is able to move toe freely, not skin breakdown, no bruising, no s/s of toe fx. encouraged pt to use his cane for ambulating, if he experience any pain/discomfort let RN know, pt may ask for motrin/tylenol prn
[2020-06-05] MEDS: IBUPROFEN 400 MG TABLET (FP) PO PRN (13:07)
[2020-06-05] MEDS: METHOCARBAMOL 500 MG TABLET PO PRN ×2 (13:07→22:33)
[2020-06-05] MEDS: OLANZapine 10 MG TABLET PO SCH (22:30)
[2020-06-05] MEDS: THIAMINE HCL 100 MG TABLET (FP) PO SCH (22:30)
[2020-06-05] MEDS: LIDOCAINE PATCH REMOVAL MC SCH (22:31)
[2020-06-05] MEDS: MELATONIN 5 MG TABLETS PO SCH (22:31)
[2020-06-06] MEDS: METHADONE HCL 40 MG DISPERSABLE TABLET PO SCH (05:31)
[2020-06-06] MEDS: chlordiazePOXIDE HCL 10 MG CAPSULE PO SCH ×2 (05:32→19:13)
[2020-06-06] MEDS ORDERED: MASKS NR ONE (08:44)
--- NOTE | 2020-06-06 09:48 | PN ---
S CIWA - CIWA Score Nausea/Vomitin-Mild Nausea/No Vomiting Muscle Tremors: 1-None Visible, but [place] Anxiety: 2 Agitation: 2 Paroxysmal Sweats: No Perspiration Orientation: 0-Oriented Tacttile Disturbances: 1-Very Mild Itch/Numbness Auditory Disturbances: 0-None Visual Disturbances: 0-None Headache: 1-Very Mild CIWA-Ar Total Score: 8 [facility] Progress Note (SOAP) Subjective: alert,oriented ,confused at time ambulation with cane,irritable Objective: 06/06/20 09:48 Vital Signs Temperature 97.5 F L 06/06/20 05:25 Pulse Rate 83 06/06/20 05:25 Respiratory Rate 18 06/06/20 05:25 Blood Pressure 125/90 06/06/20 05:25 O2 Sat by Pulse Oximetry (%) 100 06/06/20 05:25 Assessment: 06/06/20 09:48 withdrawal symptom Plan: continue detox librium regimen ,blood for ammonia level,close monitoring
[2020-06-06] MEDS: PRENATAL VITAMINS W/ FOLIC ACID TABLET (FP) PO SCH (11:11)
[2020-06-06] MEDS: LIDOCAINE 5% TOPICAL PATCH TP SCH (11:11)
[2020-06-06] MEDS: NICOTINE 21 MG/24 HOURS TOPICAL PATCH TD SCH (11:11)
--- NOTE | 2020-06-06 15:23 | PN ---
[facility] Progress Note Note: ammonia level is 79.30,to give lactulose 20 grams po qid,d/c tylenol,repeat hepatic function,ammonia level,cbc in am,close monitoring r/o hepatic encephalopathy
[2020-06-06] MEDS ORDERED: ALBUTEROL SO4 HFA INHALER IH PRN (15:26)
--- NOTE | 2020-06-06 15:38 | PN ---
[facility] Progress Note Note: patient also has history of seizure on keppra 500 mgs po bid,and history of asthma on albuterol inhaler,ordered,seizure precaution, will also do keppra level in am
[2020-06-06] MEDS: LACTULOSE 20 GM/30 ML UDC (FOR ORAL USE ONLY) PO SCH ×2 (17:10→22:00)
[2020-06-06] MEDS: hydrOXYzine PAMOATE 25 MG CAPSULE (FP) PO PRN (19:13)
--- NOTE | 2020-06-06 19:29 | PN ---
[facility] Progress Note Note: called by nursing for pt who is agitated , asking about his property , states he is concerned about his daughter who is hospitalized . Pt was started on Lactulose and Keppra today . Vital Signs - 24 hr 06/05/20 06/06/20 06/06/20 20:51 05:25 08:45 Temperature 97.3 F L 97.5 F L 97.5 F L Pulse Rate 92 H 83 81 Respiratory 20 18 18 Rate Blood Pressure 144/80 125/90 97/63 O2 Sat by Pulse 97 100 Oximetry (%) 06/06/20 06/06/20 14:32 16:48 Temperature 97.8 F 97.3 F L Pulse Rate 75 94 H Respiratory 18 16 Rate Blood Pressure 107/59 L 97/74 O2 Sat by Pulse 97 Oximetry (%) Abnormal Lab Results 06/06/20 10:30 Ammonia 79.30 H Laboratory Tests 06/02/20 06/03/20 06/03/20 22:50 07:55 07:55 WBC 6.3 RBC 4.37 Hgb 11.8 Hct 36.2 MCV 82.8 MCH 27.0 MCHC 32.6 RDW 15.4 Plt Count 237 MPV 8.3 Sodium Potassium Chloride Carbon Dioxide Anion Gap BUN Creatinine Est GFR (CKD-EPI)AfAm Est GFR (CKD-EPI)NonAf Random Glucose Fasting Glucose Hemoglobin A1c % Calcium Total Bilirubin AST ALT Alkaline Phosphatase Ammonia Total Protein Albumin Syphilis Serology Non-reactive COVID-19 ([facility]) Not detected 06/03/20 06/05/20 06/05/20 07:55 08:00 08:00 WBC RBC Hgb Hct MCV MCH MCHC RDW Plt Count MPV Sodium 140 Potassium 4.1 Chloride 106 Carbon Dioxide 26 Anion Gap 8 BUN 15.7 Creatinine 0.9 Est GFR (CKD-EPI)AfAm 110.27 Est GFR (CKD-EPI)NonAf 95.14 Random Glucose 119 H Fasting Glucose 126 H Hemoglobin A1c % 6.0 Calcium 9.6 Total Bilirubin 0.5 AST 79 H 63 H ALT 49 Alkaline Phosphatase 134 H 122 H Ammonia Total Protein 7.5 Albumin 3.3 L Syphilis Serology COVID-19 ([facility]) 06/06/20 10:30 WBC RBC Hgb Hct MCV MCH MCHC RDW Plt Count MPV Sodium Potassium Chloride Carbon Dioxide Anion Gap BUN Creatinine Est GFR (CKD-EPI)AfAm Est GFR (CKD-EPI)NonAf Random Glucose Fasting Glucose Hemoglobin A1c % Calcium Total Bilirubin AST ALT Alkaline Phosphatase Ammonia 79.30 H Total Protein Albumin Syphilis Serology COVID-19 ([facility]) Pt AAO x 3 ,ambulating freely P : continue detox , observation for pt safety
[2020-06-06] MEDS: IBUPROFEN 400 MG TABLET (FP) PO PRN (20:04)
[2020-06-06] MEDS: levETIRAcetam 500 MG TABLET (FP) PO SCH (21:59)
[2020-06-06] MEDS: THIAMINE HCL 100 MG TABLET (FP) PO SCH (21:59)
[2020-06-06] MEDS: OLANZapine 10 MG TABLET PO SCH (21:59)
[2020-06-06] MEDS ORDERED: levETIRAcetam 500 MG TABLET (FP) PO SCH (22:00)
[2020-06-06] MEDS: MELATONIN 5 MG TABLETS PO SCH (22:00)
[2020-06-06] MEDS: LIDOCAINE PATCH REMOVAL MC SCH (22:01)
[2020-06-07] MEDS ORDERED: chlordiazePOXIDE HCL 10 MG CAPSULE PO ONE (05:00)
[2020-06-07] MEDS: METHADONE HCL 40 MG DISPERSABLE TABLET PO SCH (06:06)
[2020-06-07] MEDS: levETIRAcetam 500 MG TABLET (FP) PO SCH ×2 (10:59→21:33)
[2020-06-07] MEDS: LACTULOSE 20 GM/30 ML UDC (FOR ORAL USE ONLY) PO SCH ×4 (10:59→21:34)
[2020-06-07] MEDS: LIDOCAINE 5% TOPICAL PATCH TP SCH (10:59)
[2020-06-07] MEDS: PRENATAL VITAMINS W/ FOLIC ACID TABLET (FP) PO SCH (11:00)
[2020-06-07] MEDS: NICOTINE 21 MG/24 HOURS TOPICAL PATCH TD SCH (11:00)
[2020-06-07 11:21] LABS: INR 0.99 (0.83-1.09); PROTHROMBIN TIME (PATIENT) 11.7 SEC (9.7-13.0)
[2020-06-07 11:22] LABS: BASO % 0.5 % (0-2.0); EOS % 4.7 % (0-4.5); HEMATOCRIT 32.5 % (35.4-49); HEMOGLOBIN 10.5 GM/dL (11.7-16.9); LYMPH % 31.5 % (8-40); MCH 26.7 pg (25.7-33.7); MCHC 32.1 g/dl (32.0-35.9); MEAN PLT VOLUME 8.1 fl (7.5-11.1); MONO % 11.5 % (3.8-10.2); NEUT % 51.8 % (42.8-82.8); PLATELET COUNT 227 K/MM3 (134-434); RBC 3.92 M/mm3 (4.00-5.60); RDW 15.2 % (11.9-15.9); WHITE BLOOD COUNT 5.5 K/mm3 (4.0-10.0)
[2020-06-07 11:41] LABS: BILIRUBIN,TOTAL 0.2 mg/dL (0.2-1); CALCIUM 9.1 mg/dL (8.5-10.1); CREATININE 0.8 mg/dL (0.55-1.3); POTASSIUM 4.4 mmol/L (3.5-5.1); TOT PROT 6.7 g/dl (6.4-8.2)
--- NOTE | 2020-06-07 13:31 | PN ---
S CIWA - CIWA Score Nausea/Vomitin-Mild Nausea/No Vomiting Muscle Tremors: 2 Anxiety: 1-Mildly Anxious Agitation: 2 Paroxysmal Sweats: No Perspiration Orientation: 0-Oriented Tacttile Disturbances: 1-Very Mild Itch/Numbness Auditory Disturbances: 0-None Visual Disturbances: 0-None Headache: 0-None Present CIWA-Ar Total Score: 7 BHS Progress Note (SOAP) Subjective: alert,oriented x 3,drowsy at time,confused at time,on one on one for patient safety.unstable on gait while ambulating Objective: 06/07/20 13:27 Vital Signs Temperature 97.7 F 06/07/20 10:00 Pulse Rate 75 06/07/20 10:00 Respiratory Rate 18 06/07/20 10:00 Blood Pressure 116/63 06/07/20 10:00 O2 Sat by Pulse Oximetry (%) 97 06/06/20 20:34 Laboratory Last Values WBC 5.5 K/mm3 (4.0-10.0) 06/07/20 07:30 RBC 3.92 M/mm3 (4.00-5.60) L 06/07/20 07:30 Hgb 10.5 GM/dL (11.7-16.9) L 06/07/20 07:30 Hct 32.5 % (35.4-49) L 06/07/20 07:30 MCV 83.0 fl (80-96) 06/07/20 07:30 MCH 26.7 pg (25.7-33.7) 06/07/20 07:30 MCHC 32.1 g/dl (32.0-35.9) 06/07/20 07:30 RDW 15.2 % (11.9-15.9) 06/07/20 07:30 Plt Count 227 K/MM3 (134-434) 06/07/20 07:30 MPV 8.1 fl (7.5-11.1) 06/07/20 07:30 Absolute Neuts (auto) 2.8 K/mm3 (1.5-8.0) 06/07/20 07:30 Neutrophils % 51.8 % (42.8-82.8) 06/07/20 07:30 Lymphocytes % 31.5 % (8-40) 06/07/20 07:30 Monocytes % 11.5 % (3.8-10.2) H 06/07/20 07:30 Eosinophils % 4.7 % (0-4.5) H 06/07/20 07:30 Basophils % 0.5 % (0-2.0) 06/07/20 07:30 Nucleated RBC % 0 % (0-0) 06/07/20 07:30 PT with INR 11.70 SEC (9.7-13.0) 06/07/20 07:30 INR 0.99 (0.83-1.09) 06/07/20 07:30 Sodium 140 mmol/L (136-145) 06/07/20 07:30 Potassium 4.4 mmol/L (3.5-5.1) 06/07/20 07:30 Chloride 103 mmol/L (98-107) 06/07/20 07:30 Carbon Dioxide 29 mmol/L (21-32) 06/07/20 07:30 Anion Gap 8 MMOL/L (8-16) 06/07/20 07:30 BUN 18.0 mg/dL (7-18) 06/07/20 07:30 Creatinine 0.8 mg/dL (0.55-1.3) 06/07/20 07:30 Est GFR (CKD-EPI)AfAm 115.74 06/07/20 07:30 Est GFR (CKD-EPI)NonAf 99.86 06/07/20 07:30 Random Glucose 122 mg/dL (74-106) H 06/07/20 07:30 Fasting Glucose 126 mg/dL (74-106) H 06/05/20 08:00 Hemoglobin A1c % 6.0 % (4.2-6.3) 06/05/20 08:00 Calcium 9.1 mg/dL (8.5-10.1) 06/07/20 07:30 Total Bilirubin 0.2 mg/dL (0.2-1) 06/07/20 07:30 AST 75 U/L (15-37) H 06/07/20 07:30 ALT 45 U/L (13-61) 06/07/20 07:30 Alkaline Phosphatase 119 U/L (45-117) H 06/07/20 07:30 Ammonia 53.90 umol/L (11-32) H 06/07/20 07:30 Total Protein 6.7 g/dl (6.4-8.2) 06/07/20 07:30 Albumin 3.0 g/dl (3.4-5.0) L 06/07/20 07:30 Syphilis Serology Non-reactive (NONREACTIVE) 06/03/20 07:55 COVID-19 (SHER) Not detected (Not Detected) 06/02/20 22:50 06/07/20 13:29 ammonia level is coming down to 53.90 Assessment: 06/07/20 13:31 less withdrawal Plan: patient is not stable for discharge,need monitoring ,for alter mental status with confusion , slight improvement of ammonia level , 79.30 on 06/06/2020 to 53.90 on 06/07/2020 will monitoring for hapatic encephalopathy continue hydration ,fluid,patient tolerated diet better than yesterday continue lactulose 20 gram po qid continue keppra 500 mgs po bid close monitoring for seizure,keppra level pending on methadone 120 mgs po daily maintenance dose ,if no significant improvement ,may consider reduce methadone dose still need one on one for patient safety repeat hepatic function and ammonia level in am
[2020-06-07] MEDS: OLANZapine 10 MG TABLET PO SCH (21:33)
[2020-06-07] MEDS: THIAMINE HCL 100 MG TABLET (FP) PO SCH (21:33)
[2020-06-07] MEDS: hydrOXYzine PAMOATE 25 MG CAPSULE (FP) PO PRN (21:33)
[2020-06-07] MEDS: LIDOCAINE PATCH REMOVAL MC SCH (21:34)
[2020-06-07] MEDS: IBUPROFEN 400 MG TABLET (FP) PO PRN (23:07)
[2020-06-07] MEDS: MELATONIN 5 MG TABLETS PO SCH (23:45)
[2020-06-08] MEDS: METHADONE HCL 40 MG DISPERSABLE TABLET PO SCH (06:22)
[2020-06-08 06:45] VITALS: BP 97/78; PULSE 79; TEMP 97.5
--- NOTE | 2020-06-08 09:12 | PN ---
[facility] CIWA - CIWA Score Nausea/Vomitin-No Nausea/No Vomiting Muscle Tremors: None Anxiety: 0-No Anxiety, at Ease Agitation: 0-Normal Activity Paroxysmal Sweats: No Perspiration Orientation: 1-Uncertain about Date Tacttile Disturbances: 0-None Auditory Disturbances: 0-None Visual Disturbances: 0-None Headache: 0-None Present CIWA-Ar Total Score: 1 S Progress Note (SOAP) Subjective: alter mental status ,slurred speech,drowsy Objective: 06/08/20 09:10 Vital Signs Temperature 97.5 F L 06/08/20 06:41 Pulse Rate 79 06/08/20 06:41 Respiratory Rate 16 06/08/20 06:41 Blood Pressure 97/78 06/08/20 06:41 O2 Sat by Pulse Oximetry (%) 98 06/07/20 20:46 Assessment: 06/08/20 09:10 alter mental status, Plan: transfer to [facility] er for evaluation and treatment,for alter mental status,r/o hepatic encephalopathy,no improvement with lactulose 20 grams po qid treatment, endorsed to DR Hannah Arguelles
[2020-06-08] MEDS: LACTULOSE 20 GM/30 ML UDC (FOR ORAL USE ONLY) PO SCH ×2 (11:14→14:27)
[2020-06-08] MEDS: levETIRAcetam 500 MG TABLET (FP) PO SCH (11:15)
[2020-06-08] MEDS: LIDOCAINE 5% TOPICAL PATCH TP SCH (11:15)
[2020-06-08] MEDS: NICOTINE 21 MG/24 HOURS TOPICAL PATCH TD SCH (11:16)
[2020-06-08] MEDS: PRENATAL VITAMINS W/ FOLIC ACID TABLET (FP) PO SCH (11:16)
[2020-06-08 11:24] LABS: BILIRUBIN,TOTAL 0.2 mg/dL (0.2-1)
[2020-06-08 11:29] LABS: ALBUMIN 3.2 g/dl (3.4-5.0); BILIRUBIN,DIRECT 0.1 mg/dL (0.0-0.2)
== END 2020-06-08 10:21 | disposition short-term general hospital (02) | DRG 773 ==
LOC: YASAS 16:37 → Y6N 21:53
PROVIDERS: ADMIT Allergy & Immunology; ATTEND Allergy & Immunology
PROC: HZ2ZZZZ Detoxification Services for Substance Abuse Treatment (ICD-10-PCS; principal; 2020-06-02)
DX: F10.230 Alcohol dependence with withdrawal, uncomplicated (principal); F11.23 Opioid dependence with withdrawal; F14.20 Cocaine dependence, uncomplicated; F12.20 Cannabis dependence, uncomplicated; F17.210 Nicotine dependence, cigarettes, uncomplicated; F19.280 Other psychoactive substance dependence with psychoactive substance-induced anxiety disorder; F19.282 Other psychoactive substance dependence with psychoactive substance-induced sleep disorder; F19.24 Other psychoactive substance dependence with psychoactive substance-induced mood disorder; F31.9 Bipolar disorder, unspecified; F43.10 Post-traumatic stress disorder, unspecified; I95.9 Hypotension, unspecified; G40.909 Epilepsy, unspecified, not intractable, without status epilepticus; R41.82 Altered mental status, unspecified; R47.81 Slurred speech; J45.20 Mild intermittent asthma, uncomplicated; B18.2 Chronic viral hepatitis C; R73.9 Hyperglycemia, unspecified; R74.0 Nonspecific elevation of levels of transaminase and lactic acid dehydrogenase [LDH]; Z99.89 Dependence on other enabling machines and devices; Z91.5 Personal history of self-harm; Z59.0 Homelessness; Z56.0 Unemployment, unspecified
CPT/HCPCS: 36415; 80053; 80076; 80177; 82140; 82947; 83036; 84075; 84450; 85025; 85027; 85610; 86780; Q0162; U0003

== ENCOUNTER 2020-06-08 10:38 | Inpatient (IN) | payer BC, OTHER ==
[2020-06-08] MEDS ORDERED: NALOXONE HCL 0.4 MG/ML VIAL ONE (10:58)
--- NOTE | 2020-06-08 11:10 | PDOC ---
History of Present Illness - General Chief Complaint: Altered Mental Status Stated Complaint: AMS Time Seen by Provider: 06/08/20 11:04 - History of Present Illness Initial Comments: Jazz Alejo is a 55 y/o male with PMH significant for alcohol use disorder, substance use disorder (cocaine), and opioid use disorder (heroin) presenting today for altered mental status. He has been seen at [facility] for detox for the past 3 days. He was given his usual dose of methadone 125 mg today. At present, pt is mildly diaphoretic and restless in the bed. Not able to answer any questions. Protecting airway and SpO2 at 100%. Past History - Medical History Allergies/Adverse Reactions: Allergies Allergy/AdvReac Type Severity Reaction Status Date / Time No Known Allergies Allergy Verified 06/08/20 10:56 Home Medications: Ambulatory Orders Albuterol Sulfate Inhaler - [Ventolin Hfa Inhaler -] 2 inh PO PRN PRN 09/19/19 Escitalopram Oxalate [Lexapro -] 20 mg PO DAILY 10/22/19 Olanzapine [Zyprexa] 10 mg PO DAILY 10/22/19 levETIRAcetam [Keppra -] 500 mg PO BID 10/22/19 Anemia: No Asthma: Yes Cancer: No Cardiac Disorders: No CVA: No COPD: No CHF: No Dementia: No Diabetes: No GI Disorders: No Disorders: No HTN: Yes Hypercholesterolemia: No Kidney Stones: Yes Liver Disease: Yes (hapatitis c no treatment) Seizures: Yes Thyroid Disease: No - Surgical History Abdominal Surgery: No Appendectomy: No Cardiac Surgery: No Cholecystectomy: No Lung Surgery: No Neurologic Surgery: No Orthopedic Surgery: No - Reproductive History Testicular Surgery: No - Psycho-Social/Smoking History Smoking History: Unknown if ever smoked Have you smoked in the past 12 months: No Number of Cigarettes Smoked Daily: 30 Cigars Per Day: 0 Information on smoking cessation initiated: No 'Breaking Loose' booklet given: 06/02/20 - Substance Abuse Hx (Audit-C & DAST Scrn) How often the patient has a drink containing alcohol: 4 0r more times/wk How often the patient has six or more drinks on one occasion: Daily or almost daily Score: In Men: 4 or > Positive; In Women: 3 or > Positive: 8 Screen Result (Pos requires Nsg. Audit-10AR): Positive In the last yr the pt used illegal drug/Rx for NonMed reason: Yes Score: Yes response is considered Positive: 1 Screen Result (Positive result requires Nsg. DAST-10): Positive Review of Systems - Review of Systems Able to Perform ROS?: No (AMS) *Physical Exam - Vital Signs Last Vital Signs Temp Pulse Resp BP Pulse Ox 98.1 F 86 22 H 153/68 98 06/08/20 10:52 06/08/20 10:52 06/08/20 10:52 06/08/20 10:52 06/08/20 10:52 - Physical Exam GENERAL: Awake, lethargic. HEAD: No signs of trauma, normocephalic, atraumatic _ EYES: PERRLA, EOMI, sclera anicteric, conjunctiva clear_ ENT: Hearing grossly normal, nares patent, oropharynx clear without exudates. No uvular deviation. Moist mucosa_ NECK: Normal ROM, supple, no lymphadenopathy, JVD, or masses_ LUNGS: No distress, clear to auscultation bilaterally _ HEART: Regular rate and rhythm, normal S1 and S2, no murmurs appreciated, peripheral pulses normal and equal bilaterally._ ABDOMEN: Soft, nontender, normoactive bowel sounds. No guarding, no rebound. No masses_ EXTREMITIES: Normal inspection, Normal range of motion, no edema. No clubbing or cyanosis_ NEUROLOGICAL: Moving all four extremities. SKIN: Warm, Dry, normal turgor, no rashes or lesions noted_ ED Treatment Course - LABORATORY CBC & Chemistry Diagram: 06/08/20 12:30 06/08/20 12:30 - RADIOLOGY Radiology Studies Ordered: Category Date Time Status HEAD CT WITHOUT CONTRAST [CT] Stat CT Scan 06/08/20 11:08 Ordered CHEST X-RAY PORTABLE* [RAD] Stat Radiology 06/08/20 11:09 Ordered Medical Decision Making - Medical Decision Making 55M from [facility], hx of ETOH use disorder, substance use disorder, opioid use disorder, sent in for altered mental status over the past couple of days and lethargy. Ammonia elevated per EMS (concern for hepatic encephalopathy). Hx of seizures on keppra. 06/08/20 12:48 EKG shows 79 bpm, NSR, no axis deviation, QTc 474, no ST elevation/depression. 06/08/20 12:58 CXR negative for acute chest pathology. 06/08/20 14:46 Frantz Santiago [phone] 06/08/20 15:21 CT head negative for acute intracranial pathology. Labs reviewed. Laboratory Last Values WBC 7.5 K/mm3 (4.0-10.0) 06/08/20 12:30 RBC 4.32 M/mm3 (4.00-5.60) 06/08/20 12:30 Hgb 11.3 GM/dL (11.7-16.9) L 06/08/20 12:30 Hct 35.7 % (35.4-49) 06/08/20 12:30 MCV 82.6 fl (80-96) 06/08/20 12:30 MCH 26.2 pg (25.7-33.7) 06/08/20 12:30 MCHC 31.7 g/dl (32.0-35.9) L 06/08/20 12:30 RDW 15.4 % (11.9-15.9) 06/08/20 12:30 Plt Count 237 K/MM3 (134-434) 06/08/20 12:30 MPV 7.5 fl (7.5-11.1) 06/08/20 12:30 Absolute Neuts (auto) 4.9 K/mm3 (1.5-8.0) 06/08/20 12:30 Neutrophils % 64.9 % (42.8-82.8) D 06/08/20 12:30 Lymphocytes % 20.8 % (8-40) D 06/08/20 12:30 Monocytes % 10.1 % (3.8-10.2) 06/08/20 12:30 Eosinophils % 3.8 % (0-4.5) 06/08/20 12:30 Basophils % 0.4 % (0-2.0) 06/08/20 12:30 Nucleated RBC % 0 % (0-0) 06/08/20 12:30 PT with INR 11.30 SEC (9.7-13.0) 06/08/20 12:30 INR 0.96 (0.83-1.09) 06/08/20 12:30 PTT (Actin FS) 30.1 SECONDS (25.2-36.5) 06/08/20 12:30 Sodium 143 mmol/L (136-145) 06/08/20 12:30 Potassium 4.5 mmol/L (3.5-5.1) 06/08/20 12:30 Chloride 107 mmol/L (98-107) 06/08/20 12:30 Carbon Dioxide 29 mmol/L (21-32) 06/08/20 12:30 Anion Gap 7 MMOL/L (8-16) L 06/08/20 12:30 BUN 21.2 mg/dL (7-18) H 06/08/20 12:30 Creatinine 0.9 mg/dL (0.55-1.3) 06/08/20 12:30 Est GFR (CKD-EPI)AfAm 110.27 06/08/20 12:30 Est GFR (CKD-EPI)NonAf 95.14 06/08/20 12:30 Random Glucose 110 mg/dL (74-106) H 06/08/20 12:30 Lactic Acid 1.3 mmol/L (0.4-2.0) 06/08/20 12:30 Calcium 9.3 mg/dL (8.5-10.1) 06/08/20 12:30 Total Bilirubin 0.2 mg/dL (0.2-1) 06/08/20 12:30 AST 70 U/L (15-37) H 06/08/20 12:30 ALT 50 U/L (13-61) 06/08/20 12:30 Alkaline Phosphatase 128 U/L (45-117) H 06/08/20 12:30 Ammonia 28.40 umol/L (11-32) 06/08/20 12:30 Creatine Kinase 350 U/L (26-308) H 06/08/20 12:30 Creatine Kinase Index 0.8 % (0.0-5.0) 06/08/20 12:30 CK-MB (CK-2) 2.9 ng/mL (0.5-3.6) 06/08/20 12:30 Troponin I < 0.02 ng/ml (0.00-0.05) 06/08/20 12:30 Total Protein 7.3 g/dl (6.4-8.2) 06/08/20 12:30 Albumin 3.1 g/dl (3.4-5.0) L 06/08/20 12:30 Lipase 3287 U/L (73-393) H 06/08/20 12:30 TSH 2.51 uIU/ml (0.358-3.74) 06/08/20 12:30 Urine Color Yellow 06/08/20 11:35 Urine Appearance Clear 06/08/20 11:35 Urine pH 8.5 (5.0-8.0) H 06/08/20 11:35 Ur Specific [place] 1.005 (1.010-1.035) L 06/08/20 11:35 Urine Protein Negative (NEGATIVE) 06/08/20 11:35 Urine Glucose (UA) Negative (NEGATIVE) 06/08/20 11:35 Urine Ketones Negative (NEGATIVE) 06/08/20 11:35 Urine Blood Negative (NEGATIVE) 06/08/20 11:35 Urine Nitrite Negative (NEGATIVE) 06/08/20 11:35 Urine Bilirubin Negative (NEGATIVE) 06/08/20 11:35 Urine Urobilinogen 0.2 mg/dL (0.2-1.0) 06/08/20 11:35 Ur Leukocyte Esterase Negative (NEGATIVE) 06/08/20 11:35 06/08/20 16:05 D/w Dr. Caba who accepts the patient for admission. Discharge - Discharge Information Problems reviewed: Yes Clinical Impression/Diagnosis: Altered mental status, Elevated lipase Condition: Stable - Admission Yes - Follow up/Referral - Patient Discharge Instructions - Post Discharge Activity
[2020-06-08 11:49] LABS: PH,URINE 8.5 (5.0-8.0); URINE APPEARANCE CLEAR; URINE BILIRUBIN NEGATIVE (NEGATIVE); URINE COLOR YELLOW; URINE GLUCOSE (UA) NEGATIVE (NEGATIVE); URINE KETONE NEGATIVE (NEGATIVE); URINE LEUK ESTERASE NEGATIVE (NEGATIVE); URINE NITRITE NEGATIVE (NEGATIVE); URINE PROTEIN NEGATIVE (NEGATIVE); URINE UROBILINOGEN 0.2 mg/dL (0.2-1.0)
[2020-06-08 12:52] LABS: BASO % 0.4 % (0-2.0); EOS % 3.8 % (0-4.5); HEMATOCRIT 35.7 % (35.4-49); HEMOGLOBIN 11.3 GM/dL (11.7-16.9); LYMPH % 20.8 % (8-40); MCH 26.2 pg (25.7-33.7); MCHC 31.7 g/dl (32.0-35.9); MEAN CELL VOLUME 82.6 fl (80-96); MEAN PLT VOLUME 7.5 fl (7.5-11.1); MONO % 10.1 % (3.8-10.2); NEUT % 64.9 % (42.8-82.8); PLATELET COUNT 237 K/MM3 (134-434); RBC 4.32 M/mm3 (4.00-5.60); RDW 15.4 % (11.9-15.9); WHITE BLOOD COUNT 7.5 K/mm3 (4.0-10.0)
[2020-06-08 12:57] LABS: INR 0.96 (0.83-1.09); PROTHROMBIN TIME (PATIENT) 11.3 SEC (9.7-13.0)
[2020-06-08 13:00] LABS: ACTIVATED PTT 30.1 SECONDS (25.2-36.5)
[2020-06-08 13:22] LABS: ALBUMIN 3.1 g/dl (3.4-5.0); ALK PHOS 128 U/L (45-117); ANION GAP 7 MMOL/L (8-16); BILIRUBIN,TOTAL 0.2 mg/dL (0.2-1); BLOOD UREA NITROGEN 21.2 mg/dL (7-18); CALCIUM 9.3 mg/dL (8.5-10.1); CHLORIDE 107 mmol/L (98-107); CO2 29 mmol/L (21-32); CREATININE 0.9 mg/dL (0.55-1.3); GLUCOSE,RANDOM 110 mg/dL (74-106); POTASSIUM 4.5 mmol/L (3.5-5.1); SGOT/AST 70 U/L (15-37); SGPT/ALT 50 U/L (13-61); SODIUM 143 mmol/L (136-145); TOT PROT 7.3 g/dl (6.4-8.2)
--- NOTE | 2020-06-08 14:00 | PDOC ---
Attending Attestation - Resident Resident Name: Chris Nathan - ED Attending Attestation I have performed the following: I have examined & evaluated the patient, The case was reviewed & discussed with the resident, I agree w/resident's findings & plan, Exceptions are as noted - HPI HPI: 06/08/20 16:07 Agree with resident HPI - Physicial Exam PE: 06/08/20 16:07 Agree with resident exam - Medical Decision Making 06/08/20 14:46 55yo M hx PSA (etoh, cocaine, heroine), on methadone maintenance, seizure d/o, schizophrenia, HCV presents to the ED from [facility] detox with AMS x2 days. Pt with periods of lethargy, but arousable. Was found to have elevated ammonia level concerning for hepatic encephalopathy, sent to ED for further evaluation. DDx includes hepatic encephalopathy vs DTs vs psychiatric pathology (denies SI/HI) Unlikely infection as pt with no fevers, chills, cough, urinary sxs, nuchal rigidity Unlikely cva as he is neuro intact Will also check labs, CTH, to r/o other metabolic, ischemic causes Anticipate admission Discharge - Discharge Information Problems reviewed: Yes Clinical Impression/Diagnosis: Altered mental status, Elevated lipase Condition: Stable Disposition: AGAINST MEDICAL ADVICE - Follow up/Referral - Patient Discharge Instructions - Post Discharge Activity
[2020-06-08 14:12] LABS: LIPASE 3287 U/L (73-393)
--- NOTE | 2020-06-08 14:57 | EKG ---
Test Reason : Blood Pressure : / mmHG Vent. Rate : 079 BPM Atrial Rate : 079 BPM P-R Int : 166 ms QRS Dur : 088 ms QT Int : 414 ms P-R-T Axes : 063 065 051 degrees QTc Int : 474 ms NORMAL SINUS RHYTHM NORMAL ECG WHEN COMPARED WITH ECG OF 22-OCT-2019 22:13, NO SIGNIFICANT CHANGE WAS FOUND Confirmed by ARAMIS LAMAS MD ([id number]) on 06/08/2020 2:56:41 PM Referred By: Confirmed By:ARAMIS LAMAS MD
[2020-06-08] MEDS ORDERED: SODIUM CHLORIDE 1,000 ML IV STA (15:30)
--- NOTE | 2020-06-08 16:02 | PN ---
Teaching Attending Note Name of Resident: Wilian Solorio ATTENDING PHYSICIAN STATEMENT I saw and evaluated the patient. I reviewed the resident's note and discussed the case with the resident. I agree with the resident's findings and plan as documented. SUBJECTIVE: Altered mental status OBJECTIVE: Vital Signs Temperature 98.1 F 06/08/20 10:52 Pulse Rate 89 06/08/20 14:00 Respiratory Rate 20 06/08/20 14:00 Blood Pressure 148/72 06/08/20 14:00 O2 Sat by Pulse Oximetry (%) 98 06/08/20 14:00 General: Young man, comfortable, not in distress HEENT mucous membranes moist, no anemia, no jaundice, PERRLA, no nystagmus Neck: No JVD, supple, no bruit, thyroid palpably normal, normal carotid pulsations. Chest: Nontender, minimal wheezes CVS: S1-S2 regular no murmur gallop or rub Abdomen: Mild diffuse pain, no guarding no nondistended, soft, bowel sounds present. 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8) D 06/08/20 12:30 Lymphocytes % 20.8 % (8-40) D 06/08/20 12:30 Monocytes % 10.1 % (3.8-10.2) 06/08/20 12:30 Eosinophils % 3.8 % (0-4.5) 06/08/20 12:30 Basophils % 0.4 % (0-2.0) 06/08/20 12:30 Nucleated RBC % 0 % (0-0) 06/08/20 12:30 Sodium 143 mmol/L (136-145) 06/08/20 12:30 Potassium 4.5 mmol/L (3.5-5.1) 06/08/20 12:30 Chloride 107 mmol/L (98-107) 06/08/20 12:30 Carbon Dioxide 29 mmol/L (21-32) 06/08/20 12:30 Anion Gap 7 MMOL/L (8-16) L 06/08/20 12:30 BUN 21.2 mg/dL (7-18) H 06/08/20 12:30 Creatinine 0.9 mg/dL (0.55-1.3) 06/08/20 12:30 Est GFR (CKD-EPI)AfAm 110.27 06/08/20 12:30 Est GFR (CKD-EPI)NonAf 95.14 06/08/20 12:30 Random Glucose 110 mg/dL (74-106) H 06/08/20 12:30 Lactic Acid 1.3 mmol/L (0.4-2.0) 06/08/20 12:30 Calcium 9.3 mg/dL (8.5-10.1) 06/08/20 12:30 Total Bilirubin 0.2 mg/dL (0.2-1) 06/08/20 12:30 AST 70 U/L (15-37) H 06/08/20 12:30 ALT 50 U/L (13-61) 06/08/20 12:30 Alkaline Phosphatase 128 U/L (45-117) H 06/08/20 12:30 Ammonia 28.40 umol/L (11-32) 06/08/20 12:30 Creatine Kinase 350 U/L (26-308) H 06/08/20 12:30 Creatine Kinase Index 0.8 % (0.0-5.0) 06/08/20 12:30 CK-MB (CK-2) 2.9 ng/mL (0.5-3.6) 06/08/20 12:30 Troponin I < 0.02 ng/ml (0.00-0.05) 06/08/20 12:30 Total Protein 7.3 g/dl (6.4-8.2) 06/08/20 12:30 Albumin 3.1 g/dl (3.4-5.0) L 06/08/20 12:30 Lipase 3287 U/L (73-393) H 06/08/20 12:30 TSH 2.51 uIU/ml (0.358-3.74) 06/08/20 12:30 Ammonia level 28: UA normal: Chest x-ray: Normal CT head: No acute changes EKG 79 NSR QTC [address]-T changes U tox pending ASSESSMENT AND PLAN: 55 years old man past medical history of polysubstance abuse cocaine alcohol, heroin abuse seizure disorder on Keppra transferred from [facility] change in mental status, patient was admitted on June 02, 2020 with alcohol intoxication for detox on hospitalization ammonia level was 79, patient was doing well put on methadone maintenance dose of 125 mg/day, today patient become drowsy after taking 125 mg methadone transfer to [facility] ED for further evaluation and management, at the time of examination patient complained of abdominal pain blood work-up shows elevated lipase level of 3287, walking in the corridor last BM was this morning. Active issues: 1. Altered mental status: Most likely due to high-dose of methadone improved after Narcan now alert oriented, will observe clinically, addiction medicine consult to optimize methadone dose. 2. Acute pancreatitis: Most likely resolving acute pancreatitis still elevated lipase, no acute abdominal sign, continue p.o. feed as tolerates, pain control, IV hydration, follow-up lipase level and abdominal ultrasound. 3. Seizure disorders:; Continue Keppra, lorazepam 2 mg IV as needed breakthrough seizure 4. Alcohol detox: Completed 6 days, Librium can be added if indicated advised patient is stable no clinical sign of alcohol withdrawal. Continue thiamine and folic acid. 5. Transaminitis: Most likely due to alcoholic liver disease, consider abdominal ultrasound, hepatitis panel, follow-up LFTs ammonia level is 28 continue lactulose. COPD: Patient most likely have COPD albuterol MDI as needed SCD for DVT prophylaxis: Case discussed with the resident
--- NOTE | 2020-06-08 16:04 | HP ---
<[facility]formerly [facility]Asha Presley - Last Filed: 06/09/20 08:20> CHIEF COMPLAINT: PCP: HISTORY OF PRESENT ILLNESS: ER course was notable for: (1) (2) (3) Recent Travel: PAST MEDICAL HISTORY: PAST SURGICAL HISTORY: Social History: Smoking: Alcohol: Drugs: Allergies No Known Allergies Allergy (Verified 06/08/20 10:56) HOME MEDICATIONS: Home Medications Medication Instructions Recorded Albuterol Sulfate Inhaler - 2 inh PO PRN PRN 09/19/19 [Ventolin Hfa Inhaler -] Escitalopram Oxalate [Lexapro -] 20 mg PO DAILY 10/22/19 Olanzapine [Zyprexa] 10 mg PO DAILY 10/22/19 levETIRAcetam [Keppra -] 500 mg PO BID 10/22/19 REVIEW OF SYSTEMS CONSTITUTIONAL: Absent: fever, chills, diaphoresis, generalized weakness, malaise, loss of appetite, weight change HEENT: Absent: rhinorrhea, nasal congestion, throat pain, throat swelling, difficulty swallowing, mouth swelling, ear pain, eye pain, visual changes CARDIOVASCULAR: Absent: chest pain, syncope, palpitations, irregular heart rate, lightheadedness, peripheral edema RESPIRATORY: Absent: cough, shortness of breath, dyspnea with exertion, orthopnea, wheezing, stridor, hemoptysis GASTROINTESTINAL: Absent: abdominal pain, abdominal distension, nausea, vomiting, diarrhea, constipation, melena, hematochezia GENITOURINARY: Absent: dysuria, frequency, urgency, hesitancy, hematuria, flank pain, genital pain MUSCULOSKELETAL: Absent: myalgia, arthralgia, joint swelling, back pain, neck pain SKIN: Absent: rash, itching, pallor HEMATOLOGIC/IMMUNOLOGIC: Absent: easy bleeding, easy bruising, lymphadenopathy, frequent infections ENDOCRINE: Absent: unexplained weight gain, unexplained weight loss, heat intolerance, cold intolerance NEUROLOGIC: Absent: headache, focal weakness or paresthesias, dizziness, unsteady gait, seizure, mental status changes, bladder or bowel incontinence PSYCHIATRIC: Absent: anxiety, depression, suicidal or homicidal ideation, hallucinations. PHYSICAL EXAMINATION Vital Signs - 24 hr 06/08/20 06/08/20 06/08/20 10:52 11:08 14:00 Temperature 98.1 F Pulse Rate 86 Pulse Rate [ 89 Right Radial] Respiratory 22 H 20 Rate Blood Pressure 153/68 Blood Pressure 148/72 [Left Arm] O2 Sat by Pulse 98 100 98 Oximetry (%) 06/08/20 06/08/20 18:38 22:00 Temperature 98.0 F 99.3 F Pulse Rate 90 Pulse Rate [ 86 Right Radial] Respiratory 18 18 Rate Blood Pressure 138/81 Blood Pressure 145/68 [Left Arm] O2 Sat by Pulse 98 98 Oximetry (%) GENERAL: Awake, alert, and fully oriented, in no acute distress. HEAD: Normal with no signs of trauma. EYES: Pupils equal, round and reactive to light, extraocular movements intact, sclera anicteric, conjunctiva clear. No lid lag. EARS, NOSE, THROAT: Ears normal, nares patent, oropharynx clear without exudates. Moist mucous membranes. NECK: Normal range of motion, supple without lymphadenopathy, JVD, or masses. LUNGS: Breath sounds equal, clear to auscultation bilaterally. No wheezes, and no crackles. No accessory muscle use. HEART: Regular rate and rhythm, normal S1 and S2 without murmur, rub or gallop. ABDOMEN: Soft, nontender, not distended, normoactive bowel sounds, no guarding, no rebound, no masses. No hepatomegaly or splenomegaly. MUSCULOSKELETAL: Normal range of motion at all joints. No bony deformities or tenderness. No CVA tenderness. UPPER EXTREMITIES: 2+ pulses, warm, well-perfused. No cyanosis. No clubbing. No peripheral edema. LOWER EXTREMITIES: 2+ pulses, warm, well-perfused. No calf tenderness. No peripheral edema. NEUROLOGICAL: Cranial nerves II-XII intact. Normal speech. Normal gait. PSYCHIATRIC: Cooperative. Good eye contact. Appropriate mood and affect. SKIN: Warm, dry, normal turgor, no rashes or lesions noted, normal capillary refill. Laboratory Results - last 24 hr 06/08/20 06/08/20 06/08/20 11:35 12:30 12:30 WBC 7.5 RBC 4.32 Hgb 11.3 L Hct 35.7 MCV 82.6 MCH 26.2 MCHC 31.7 L RDW 15.4 Plt Count 237 MPV 7.5 Absolute Neuts (auto) 4.9 Neutrophils % 64.9 D Lymphocytes % 20.8 D Monocytes % 10.1 Eosinophils % 3.8 Basophils % 0.4 Nucleated RBC % 0 PT with INR 11.30 INR 0.96 PTT (Actin FS) 30.1 VBG pH POC VBG pCO2 POC VBG pO2 VBG HCO3 VBG O2 Sat (Yoselin) VBG Base Excess Sodium Potassium Chloride Carbon Dioxide Anion Gap BUN Creatinine Est GFR (CKD-EPI)AfAm Est GFR (CKD-EPI)NonAf Random Glucose Lactic Acid Calcium Total Bilirubin AST ALT Alkaline Phosphatase Ammonia Creatine Kinase Creatine Kinase Index CK-MB (CK-2) Troponin I Total Protein Albumin Lipase TSH Free T4 Urine Color Yellow Urine Appearance Clear Urine pH 8.5 H Ur Specific Piffard 1.005 L Urine Protein Negative Urine Glucose (UA) Negative Urine Ketones Negative Urine Blood Negative Urine Nitrite Negative Urine Bilirubin Negative Urine Urobilinogen 0.2 Ur Leukocyte Esterase Negative Salicylates Opiates Screen Methadone Screen Acetaminophen Barbiturate Screen Phencyclidine Screen Ur Amphetamines Screen MDMA (Ecstasy) Screen Benzodiazepines Screen Cocaine Screen U Marijuana (THC) Screen Alcohol, Quantitative 06/08/20 06/08/20 06/08/20 12:30 12:30 12:30 WBC RBC Hgb Hct MCV MCH MCHC RDW Plt Count MPV Absolute Neuts (auto) Neutrophils % Lymphocytes % Monocytes % Eosinophils % Basophils % Nucleated RBC % PT with INR INR PTT (Actin FS) VBG pH POC VBG pCO2 POC VBG pO2 VBG HCO3 VBG O2 Sat (Yoselin) VBG Base Excess Sodium 143 Potassium 4.5 Chloride 107 Carbon Dioxide 29 Anion Gap 7 L BUN 21.2 H Creatinine 0.9 Est GFR (CKD-EPI)AfAm 110.27 Est GFR (CKD-EPI)NonAf 95.14 Random Glucose 110 H Lactic Acid 1.3 Calcium 9.3 Total Bilirubin 0.2 AST 70 H ALT 50 Alkaline Phosphatase 128 H Ammonia 28.40 Creatine Kinase 350 H Creatine Kinase Index 0.8 CK-MB (CK-2) 2.9 Troponin I < 0.02 Total Protein 7.3 Albumin 3.1 L Lipase 3287 H TSH 2.51 Free T4 Urine Color Urine Appearance Urine pH Ur Specific Piffard Urine Protein Urine Glucose (UA) Urine Ketones Urine Blood Urine Nitrite Urine Bilirubin Urine Urobilinogen Ur Leukocyte Esterase Salicylates Opiates Screen Methadone Screen Acetaminophen Barbiturate Screen Phencyclidine Screen Ur Amphetamines Screen MDMA (Ecstasy) Screen Benzodiazepines Screen Cocaine Screen U Marijuana (THC) Screen Alcohol, Quantitative 06/08/20 06/08/20 06/08/20 15:30 15:47 17:05 WBC RBC Hgb Hct MCV MCH MCHC RDW Plt Count MPV Absolute Neuts (auto) Neutrophils % Lymphocytes % Monocytes % Eosinophils % Basophils % Nucleated RBC % PT with INR INR PTT (Actin FS) VBG pH 7.381 POC VBG pCO2 50.1 POC VBG pO2 56.3 H VBG HCO3 29.0 VBG O2 Sat (Oyselin) 88.5 H VBG Base Excess 3.1 H Sodium Potassium Chloride Carbon Dioxide Anion Gap BUN Creatinine Est GFR (CKD-EPI)AfAm Est GFR (CKD-EPI)NonAf Random Glucose Lactic Acid Calcium Total Bilirubin AST ALT Alkaline Phosphatase Ammonia Creatine Kinase Creatine Kinase Index CK-MB (CK-2) Troponin I Total Protein Albumin Lipase TSH Free T4 0.80 Urine Color Urine Appearance Urine pH Ur Specific Piffard Urine Protein Urine Glucose (UA) Urine Ketones Urine Blood Urine Nitrite Urine Bilirubin Urine Urobilinogen Ur Leukocyte Esterase Salicylates 1.9 L Opiates Screen Methadone Screen Acetaminophen --noresult-- Barbiturate Screen Phencyclidine Screen Ur Amphetamines Screen MDMA (Ecstasy) Screen Benzodiazepines Screen Cocaine Screen U Marijuana (THC) Screen Alcohol, Quantitative < 3 06/08/20 17:58 WBC RBC Hgb Hct MCV MCH MCHC RDW Plt Count MPV Absolute Neuts (auto) Neutrophils % Lymphocytes % Monocytes % Eosinophils % Basophils % Nucleated RBC % PT with INR INR PTT (Actin FS) VBG pH POC VBG pCO2 POC VBG pO2 VBG HCO3 VBG O2 Sat (Yoselin) VBG Base Excess Sodium Potassium Chloride Carbon Dioxide Anion Gap BUN Creatinine Est GFR (CKD-EPI)AfAm Est GFR (CKD-EPI)NonAf Random Glucose Lactic Acid Calcium Total Bilirubin AST ALT Alkaline Phosphatase Ammonia Creatine Kinase Creatine Kinase Index CK-MB (CK-2) Troponin I Total Protein Albumin Lipase TSH Free T4 Urine Color Urine Appearance Urine pH Ur Specific Piffard Urine Protein Urine Glucose (UA) Urine Ketones Urine Blood Urine Nitrite Urine Bilirubin Urine Urobilinogen Ur Leukocyte Esterase Salicylates Opiates Screen Negative Methadone Screen Positive A* Acetaminophen Barbiturate Screen Negative Phencyclidine Screen Negative Ur Amphetamines Screen Negative MDMA (Ecstasy) Screen Negative Benzodiazepines Screen Positive A* Cocaine Screen Negative U Marijuana (THC) Screen Negative Alcohol, Quantitative ASSESSMENT/PLAN: ATTENDING PHYSICIAN STATEMENT I saw and evaluated the patient. I reviewed the resident's note and discussed the case with the resident. I agree with the resident's findings and plan as documented. SUBJECTIVE: OBJECTIVE: ASSESSMENT AND PLAN: <Miranda Caba - Last Filed: 06/09/20 08:28> CHIEF COMPLAINT: AMS, sent from PCP: None HISTORY OF PRESENT ILLNESS: Pt is a poor historian. 55M w/ pmhx of PSA (etoh, cocaine, heroine), on methadone maintenance, seizure d/o, schizophrenia, HCV presents to the ED from [facility] detox with AMS x2 days. Per chart review, he was found to be drowsy with slurred speech. He was being treated for hepatic encephalopathy at [facility] and given Lactulose, with improvement in Amm level but with worsening mental status. He was at [facility] for alcohol detox. Upon encounter, pt was complaining of generalized body pain in his chest, abd, back and legs. Also admits to pain in his head on the R side. Pt was seen walking around the hospital exiting the ED to buy coffee however was escorted back to the ED by security. Unable to obtain further history as he was uncooperative with questioning during interview. ER course was notable for: (1) VS unremarkable, Hgb 11.3, AST/ALT 70/50, Alk Stephanie 128, Lipase 3287 (2) (3) Recent Travel: Denies PAST MEDICAL HISTORY: As per HPI PAST SURGICAL HISTORY: Denies Social History: Per chart review: Smoking: Smokes 30 cig/day Alcohol: Drinks vodka 2L daily since age 21 (last drink 06/01/20) Drugs: uses heroine IV QD, since age 16 (last used 06/01/20) Unemployed Allergies No Known Allergies Allergy (Verified 06/08/20 10:56) HOME MEDICATIONS: Home Medications Medication Instructions Recorded Albuterol Sulfate Inhaler - 2 inh PO PRN PRN 09/19/19 [Ventolin Hfa Inhaler -] Escitalopram Oxalate [Lexapro -] 20 mg PO DAILY 10/22/19 Olanzapine [Zyprexa] 15 mg PO DAILY 10/22/19 levETIRAcetam [Keppra -] 100 mg PO BID 10/22/19 REVIEW OF SYSTEMS CONSTITUTIONAL: Absent: fever, chills, diaphoresis, generalized weakness, malaise, loss of appetite, weight change HEENT: Absent: rhinorrhea, nasal congestion, throat pain, throat swelling, difficulty swallowing, mouth swelling, ear pain, eye pain, visual changes CARDIOVASCULAR: chest pain Absent: syncope, palpitations, irregular heart rate, lightheadedness, peripheral edema RESPIRATORY: shortness of breath, dyspnea with exertion Absent: cough, , orthopnea, wheezing, stridor, hemoptysis GASTROINTESTINAL: Absent: abdominal pain, abdominal distension, nausea, vomiting, diarrhea, constipation, melena, hematochezia GENITOURINARY: Absent: dysuria, frequency, urgency, hesitancy, hematuria, flank pain, genital pain MUSCULOSKELETAL: Absent: myalgia, arthralgia, joint swelling, back pain, neck pain SKIN: Absent: rash, itching, pallor HEMATOLOGIC/IMMUNOLOGIC: Absent: easy bleeding, easy bruising, lymphadenopathy, frequent infections ENDOCRINE: Absent: unexplained weight gain, unexplained weight loss, heat intolerance, cold intolerance NEUROLOGIC: Absent: headache, focal weakness or paresthesias, dizziness, unsteady gait, seizure, mental status changes, bladder or bowel incontinence PSYCHIATRIC: Absent: anxiety, depression, suicidal or homicidal ideation, hallucinations. PHYSICAL EXAMINATION Vital Signs - 24 hr 06/08/20 06/08/20 06/08/20 10:52 11:08 14:00 Temperature 98.1 F Pulse Rate 86 Pulse Rate [ 89 Right Radial] Respiratory 22 H 20 Rate Blood Pressure 153/68 Blood Pressure 148/72 [Left Arm] O2 Sat by Pulse 98 100 98 Oximetry (%) GENERAL: Awake and alerted. Oriented to person and place. Mildly uncomfortable. HEENT: AT/NC. EOMI. MMM. NECK: Normal range of motion, supple without lymphadenopathy, JVD, or masses. LUNGS: Mild end expiratory wheezes, good air entry, symmetric chest rise. No rales noted. HEART: RRR. Normal S1, S2. No murmurs noted. ABDOMEN: Soft, mild generalized abdominal tenderness. No rebound tenderness/guarding. Pt refused to let me look at abdomen under gown. MUSCULOSKELETAL: Moves all extremities. EXTREMITIES: No peripheral edema noted. uses a cane. NEUROLOGICAL: Cranial nerves II-XII intact. Normal speech. Walks with cane. PSYCHIATRIC: Cooperative. Good eye contact. Appropriate mood and affect. SKIN: Warm, dry, normal turgor, no rashes or lesions noted, normal capillary refill. Laboratory Results - last 24 hr 06/08/20 06/08/20 06/08/20 11:35 12:30 12:30 WBC 7.5 RBC 4.32 Hgb 11.3 L Hct 35.7 MCV 82.6 MCH 26.2 MCHC 31.7 L RDW 15.4 Plt Count 237 MPV 7.5 Absolute Neuts (auto) 4.9 Neutrophils % 64.9 D Lymphocytes % 20.8 D Monocytes % 10.1 Eosinophils % 3.8 Basophils % 0.4 Nucleated RBC % 0 PT with INR 11.30 INR 0.96 PTT (Actin FS) 30.1 Sodium Potassium Chloride Carbon Dioxide Anion Gap BUN Creatinine Est GFR (CKD-EPI)AfAm Est GFR (CKD-EPI)NonAf Random Glucose Lactic Acid Calcium Total Bilirubin AST ALT Alkaline Phosphatase Ammonia Creatine Kinase Creatine Kinase Index CK-MB (CK-2) Troponin I Total Protein Albumin Lipase TSH Urine Color Yellow Urine Appearance Clear Urine pH 8.5 H Ur Specific Piffard 1.005 L Urine Protein Negative Urine Glucose (UA) Negative Urine Ketones Negative Urine Blood Negative Urine Nitrite Negative Urine Bilirubin Negative Urine Urobilinogen 0.2 Ur Leukocyte Esterase Negative 06/08/20 06/08/20 06/08/20 12:30 12:30 12:30 WBC RBC Hgb Hct MCV MCH MCHC RDW Plt Count MPV Absolute Neuts (auto) Neutrophils % Lymphocytes % Monocytes % Eosinophils % Basophils % Nucleated RBC % PT with INR INR PTT (Actin FS) Sodium 143 Potassium 4.5 Chloride 107 Carbon Dioxide 29 Anion Gap 7 L BUN 21.2 H Creatinine 0.9 Est GFR (CKD-EPI)AfAm 110.27 Est GFR (CKD-EPI)NonAf 95.14 Random Glucose 110 H Lactic Acid 1.3 Calcium 9.3 Total Bilirubin 0.2 AST 70 H ALT 50 Alkaline Phosphatase 128 H Ammonia 28.40 Creatine Kinase 350 H Creatine Kinase Index 0.8 CK-MB (CK-2) 2.9 Troponin I < 0.02 Total Protein 7.3 Albumin 3.1 L Lipase 3287 H TSH 2.51 Urine Color Urine Appearance Urine pH Ur Specific Piffard Urine Protein Urine Glucose (UA) Urine Ketones Urine Blood Urine Nitrite Urine Bilirubin Urine Urobilinogen Ur Leukocyte Esterase ASSESSMENT/PLAN: 55M w/ pmhx of PSA (etoh, cocaine, heroine), on methadone maintenance, seizure d/o, schizophrenia, HCV presents to the ED from [facility] detox with AMS. #Acute Metabolic Encephalopathy; may be 2/2 Methadone dosage vs. hepatic encephalopathy vs. substance withdrawal -Given Narcan upon arrival, with improvement in mental status -Utox ordered -Detox specialist consulted to optimize Methadone dosage -Ammonia level previously elevated, was on Lactulose at [facility]; will cont Lactulose 20 QID. #Acute Pancreatitis; Lipase ~3200 -Clinically, no significant abd pain -Cont diet as tolerated -NS @ 75 -Repeat lipase in AM -Abd U/s ordered #Transaminitis; AST/ALT 70/50. Likely 2/2 alcoholic liver disease. -Abd u/s ordered -trend LFTs -Avoid hepatoxic agents #Seizure disorder; No acute issues. Cont home meds: Keppra 500 BID #Polysubstance Abuse D/o; s/p Alcohol detox (with Librium), now on Methadone. No signs of withdrawal currently. -Detox specialist consulted for Methadone dosage adjustment -Thiamine/Folate/MVI -Ativan 2 mg IVP Q4H PRN for withdrawal symptoms #Schizophrenia; No acute issues. Cont home meds: Zyprexa 10 HS #Prophylaxis DVT: Lovenox GI: Protonix 40 #FEN -NS @ 75 -recheck lytes in AM -Regular diet Dispo -Admit to med-surg Visit type - Emergency Visit Emergency Visit: Yes ED Registration Date: 06/08/20 Care time: The patient presented to the Emergency Department on the above date and was hospitalized for further evaluation of their emergent condition. - New Patient This patient is new to me today: Yes Date on this admission: 06/08/20 - Critical Care Critical Care patient: No ATTENDING PHYSICIAN STATEMENT I saw and evaluated the patient. I reviewed the resident's note and discussed the case with the resident. I agree with the resident's findings and plan as documented. SUBJECTIVE: OBJECTIVE: ASSESSMENT AND PLAN:
[2020-06-08 17:35] LABS: VENOUS BASE EXCESS 3.1 mmol/L (-2-2); VENOUS O2 SATURATION 88.5 % (70-80); VENOUS PCO2 50.1 mmHg (38-52); VENOUS PH 7.381 (7.310-7.410)
[2020-06-08] MEDS ORDERED: ENOXAPARIN NA (PORCINE) 40 MG/0.4 ML DISP.SYRIN SQ SCH (18:00)
[2020-06-08 18:33] LABS: COCAINE, UR NEGATIVE ng/ml (CUTOFF=300); OPIATES, URI NEGATIVE ng/ml (CUTOFF=300); PHENCYCLIDINE,URINE NEGATIVE ng/ml (CUTOFF=25); URINE AMPHETAMINES NEGATIVE ng/ml (CUTOFF=500); URINE BARBITURATES NEGATIVE ng/ml (CUTOFF=200)
[2020-06-08 18:37] LABS: METHADONE, UR POSITIVE ng/ml (CUTOFF=300); URINE BENZODIAZEPINES POSITIVE ng/ml (CUTOFF=200)
[2020-06-08] MEDS ORDERED: LORazepam 2 MG/ML SDV VIAL IVPUSH PRN (18:41)
[2020-06-08] MEDS ORDERED: FOLIC ACID 1 MG TABLET (FP) PO SCH (18:45)
[2020-06-08] MEDS ORDERED: SODIUM CHLORIDE 1,000 ML IV SCH (18:45)
[2020-06-08] MEDS ORDERED: MULTIVITAMINS (DAILY MVI) TABLET (FP) PO SCH (18:45)
[2020-06-08] MEDS ORDERED: PANTOPRAZOLE 40 MG TABLET PO SCH (18:45)
[2020-06-08] MEDS ORDERED: THIAMINE HCL 100 MG TABLET (FP) PO SCH (18:45)
[2020-06-08] MEDS ORDERED: LACTULOSE 20 GM/30 ML UDC (FOR ORAL USE ONLY) PO PRN (18:48)
[2020-06-08] MEDS ORDERED: MULTIVITAMINS (DAILY MVI) TABLET (FP) ONE (19:11)
[2020-06-08] MEDS ORDERED: ENOXAPARIN NA (PORCINE) 40 MG/0.4 ML DISP.SYRIN SQ ONE (19:12)
[2020-06-08] MEDS ORDERED: PANTOPRAZOLE 40 MG TABLET ONE (19:12)
[2020-06-08] MEDS ORDERED: FOLIC ACID 1 MG TABLET (FP) ONE (19:12)
[2020-06-08] MEDS ORDERED: THIAMINE HCL 100 MG TABLET (FP) ONE (19:12)
[2020-06-08] MEDS ORDERED: levETIRAcetam 500 MG TABLET (FP) PO SCH (22:00)
[2020-06-08 23:35] VITALS: BP 138/81; PULSE 90; TEMP 99.3; BMI 29.1
--- NOTE | 2020-06-09 08:13 | HOSP ---
Subjective - Review of Symptoms General: Yes: Other Neurological: Yes: Other Physical Examination Vital Signs: Vital Signs Temperature 99.3 F 06/08/20 22:00 Pulse Rate 90 06/08/20 22:00 Respiratory Rate 18 06/08/20 22:00 Blood Pressure 138/81 06/08/20 22:00 O2 Sat by Pulse Oximetry (%) 98 06/08/20 22:00 Labs: CBC, BMP 06/08/20 12:30 06/08/20 12:30
--- NOTE | 2020-06-09 08:20 | PN ---
Physical Exam: SUBJECTIVE: Patient seen and examined at the bedside. exam limited a patient was anxious and wanted to leave AMA. was very upset about an incident that occurred at and that he felt he was mistreated there. patient tells me that [facility] and was sent here by staff. reports that he had a bad experience at and no longer wants to be in the hospital. he tells me his name, knows where he is and who the president is. he knows date, and time. tells me he is aware of his pancreatitis but does not want any treatment. wants to go home and he says he may come back if he feels worse. recommended to him that he stay in the hospital for acute pancreatitis treatment but he is refusing. he is anxious and upset. denies suicide ideation, denies homicidal ideation. attempted to call his contact listed on emr: went to , no message left asked patient to let me call his , but he refused to give me any family member phone no. he is listed as homeless on emr. I asked him to stay and eat breakfast, and allow for us to help him with his medical issues. he does not want to stay and kept going to nursing station asking for his paperwork so that he can sign ama. he has been reassured that he is safe here. but he insists on leaving. security attempting to retrieve his personal belongings from . OBJECTIVE: Vital Signs Period Temp Pulse Resp BP Sys/Ramírez Pulse Ox Last 24 Hr 98.0 F-99.3 F 86-90 18-22 138-153/68-81 96-100 GENERAL: The patient is awake, alert, oriented to person, place and time very anxious - reassured he was safe here. but wants to leave. HEAD: Normal with no signs of trauma. EYES: PERRL, extraocular movements intact, sclera anicteric, conjunctiva clear. No ptosis. ENT: Ears normal, nares patent, oropharynx clear without exudates, moist mucous membranes. NECK: Trachea midline, full range of motion, supple. LUNGS: deferred lung auscultation, on room air HEART: not auscultated ABDOMEN: nondistended EXTREMITIES: 2+ pulses, warm, well-perfused, no edema. NEUROLOGICAL: Normal speech, gait steady PSYCH: anxious SKIN:numerous tattoos Laboratory Results - last 24 hr 07/16/20 07/16/20 07/16/20 11:35 12:30 12:30 WBC 7.5 RBC 4.32 Hgb 11.3 L Hct 35.7 MCV 82.6 MCH 26.2 MCHC 31.7 L RDW 15.4 Plt Count 237 MPV 7.5 Absolute Neuts (auto) 4.9 Neutrophils % 64.9 D Lymphocytes % 20.8 D Monocytes % 10.1 Eosinophils % 3.8 Basophils % 0.4 Nucleated RBC % 0 PT with INR 11.30 INR 0.96 PTT (Actin FS) 30.1 VBG pH POC VBG pCO2 POC VBG pO2 VBG HCO3 VBG O2 Sat (Yoselin) VBG Base Excess Sodium Potassium Chloride Carbon Dioxide Anion Gap BUN Creatinine Est GFR (CKD-EPI)AfAm Est GFR (CKD-EPI)NonAf Random Glucose Lactic Acid Calcium Total Bilirubin AST ALT Alkaline Phosphatase Ammonia Creatine Kinase Creatine Kinase Index CK-MB (CK-2) Troponin I Total Protein Albumin Lipase TSH Free T4 Urine Color Yellow Urine Appearance Clear Urine pH 8.5 H Ur Specific Homer 1.005 L Urine Protein Negative Urine Glucose (UA) Negative Urine Ketones Negative Urine Blood Negative Urine Nitrite Negative Urine Bilirubin Negative Urine Urobilinogen 0.2 Ur Leukocyte Esterase Negative Salicylates Opiates Screen Methadone Screen Acetaminophen Barbiturate Screen Phencyclidine Screen Ur Amphetamines Screen MDMA (Ecstasy) Screen Benzodiazepines Screen Cocaine Screen U Marijuana (THC) Screen Alcohol, Quantitative 06/08/20 06/08/20 06/08/20 12:30 12:30 12:30 WBC RBC Hgb Hct MCV MCH MCHC RDW Plt Count MPV Absolute Neuts (auto) Neutrophils % Lymphocytes % Monocytes % Eosinophils % Basophils % Nucleated RBC % PT with INR INR PTT (Actin FS) VBG pH POC VBG pCO2 POC VBG pO2 VBG HCO3 VBG O2 Sat (Yoselin) VBG Base Excess Sodium 143 Potassium 4.5 Chloride 107 Carbon Dioxide 29 Anion Gap 7 L BUN 21.2 H Creatinine 0.9 Est GFR (CKD-EPI)AfAm 110.27 Est GFR (CKD-EPI)NonAf 95.14 Random Glucose 110 H Lactic Acid 1.3 Calcium 9.3 Total Bilirubin 0.2 AST 70 H ALT 50 Alkaline Phosphatase 128 H Ammonia 28.40 Creatine Kinase 350 H Creatine Kinase Index 0.8 CK-MB (CK-2) 2.9 Troponin I < 0.02 Total Protein 7.3 Albumin 3.1 L Lipase 3287 H TSH 2.51 Free T4 Urine Color Urine Appearance Urine pH Ur Specific Homer Urine Protein Urine Glucose (UA) Urine Ketones Urine Blood Urine Nitrite Urine Bilirubin Urine Urobilinogen Ur Leukocyte Esterase Salicylates Opiates Screen Methadone Screen Acetaminophen Barbiturate Screen Phencyclidine Screen Ur Amphetamines Screen MDMA (Ecstasy) Screen Benzodiazepines Screen Cocaine Screen U Marijuana (THC) Screen Alcohol, Quantitative 06/08/20 06/08/20 06/08/20 15:30 15:47 17:05 WBC RBC Hgb Hct MCV MCH MCHC RDW Plt Count MPV Absolute Neuts (auto) Neutrophils % Lymphocytes % Monocytes % Eosinophils % Basophils % Nucleated RBC % PT with INR INR PTT (Actin FS) VBG pH 7.381 POC VBG pCO2 50.1 POC VBG pO2 56.3 H VBG HCO3 29.0 VBG O2 Sat (Yoselin) 88.5 H VBG Base Excess 3.1 H Sodium Potassium Chloride Carbon Dioxide Anion Gap BUN Creatinine Est GFR (CKD-EPI)AfAm Est GFR (CKD-EPI)NonAf Random Glucose Lactic Acid Calcium Total Bilirubin AST ALT Alkaline Phosphatase Ammonia Creatine Kinase Creatine Kinase Index CK-MB (CK-2) Troponin I Total Protein Albumin Lipase TSH Free T4 0.80 Urine Color Urine Appearance Urine pH Ur Specific Homer Urine Protein Urine Glucose (UA) Urine Ketones Urine Blood Urine Nitrite Urine Bilirubin Urine Urobilinogen Ur Leukocyte Esterase Salicylates 1.9 L Opiates Screen Methadone Screen Acetaminophen --noresult-- Barbiturate Screen Phencyclidine Screen Ur Amphetamines Screen MDMA (Ecstasy) Screen Benzodiazepines Screen Cocaine Screen U Marijuana (THC) Screen Alcohol, Quantitative < 3 06/08/20 17:58 WBC RBC Hgb Hct MCV MCH MCHC RDW Plt Count MPV Absolute Neuts (auto) Neutrophils % Lymphocytes % Monocytes % Eosinophils % Basophils % Nucleated RBC % PT with INR INR PTT (Actin FS) VBG pH POC VBG pCO2 POC VBG pO2 VBG HCO3 VBG O2 Sat (Yoselin) VBG Base Excess Sodium Potassium Chloride Carbon Dioxide Anion Gap BUN Creatinine Est GFR (CKD-EPI)AfAm Est GFR (CKD-EPI)NonAf Random Glucose Lactic Acid Calcium Total Bilirubin AST ALT Alkaline Phosphatase Ammonia Creatine Kinase Creatine Kinase Index CK-MB (CK-2) Troponin I Total Protein Albumin Lipase TSH Free T4 Urine Color Urine Appearance Urine pH Ur Specific Homer Urine Protein Urine Glucose (UA) Urine Ketones Urine Blood Urine Nitrite Urine Bilirubin Urine Urobilinogen Ur Leukocyte Esterase Salicylates Opiates Screen Negative Methadone Screen Positive A* Acetaminophen Barbiturate Screen Negative Phencyclidine Screen Negative Ur Amphetamines Screen Negative MDMA (Ecstasy) Screen Negative Benzodiazepines Screen Positive A* Cocaine Screen Negative U Marijuana (THC) Screen Negative Alcohol, Quantitative Active Medications Generic Name Dose Route Start Last Admin Trade Name Freq PRN Reason Stop Dose Admin Enoxaparin Sodium 40 mg 06/08/20 18:00 06/08/20 19:21 Lovenox - SQ 40 mg DAILY CHARLIE Administration Folic Acid 1 mg 06/08/20 18:45 06/08/20 19:21 Folic Acid - PO 1 mg DAILY CHARLIE Administration Sodium Chloride 1,000 mls @ 75 mls/hr 06/08/20 18:45 06/08/20 22:34 Normal Saline - IV 75 mls/hr ASDIR CHARLIE Administration Lactulose 20 gm 06/08/20 18:48 Cephulac (Oral Use) PO Q6H PRN CONSTIPATION Levetiracetam 500 mg 06/08/20 22:00 06/08/20 22:33 Keppra - PO 500 mg BID CHARLIE Administration Lorazepam 2 mg 06/08/20 18:41 06/09/20 00:18 Ativan Injection - IVPUSH 2 mg Q4H PRN Administration WITHDRAWAL(CONT SUBST) Multivitamins/Minerals/Vitamin C 1 tab 06/08/20 18:45 06/08/20 19:21 Tab-A-Vit - PO 1 tab DAILY CHARLIE Administration Olanzapine 10 mg 06/09/20 10:00 Zyprexa - PO DAILY CHARLIE Pantoprazole Sodium 40 mg 06/08/20 18:45 06/08/20 19:21 Protonix - PO 40 mg DAILY CHARLIE Administration Thiamine HCl 100 mg 06/08/20 18:45 06/08/20 19:21 Vitamin B1 - PO 100 mg DAILY CHARLIE Administration ASSESSMENT/PLAN: Problem List - Problems (1) Pancreatitis Code(s): K85.90 - ACUTE PANCREATITIS WITHOUT NECROSIS OR INFECTION, UNSP (2) Elevated lipase Code(s): R74.8 - ABNORMAL LEVELS OF OTHER SERUM ENZYMES (3) Use of cane as ambulatory aid Code(s): Z99.89 - DEPENDENCE ON OTHER ENABLING MACHINES AND DEVICES (4) Methadone maintenance therapy patient Code(s): F11.20 - OPIOID DEPENDENCE, UNCOMPLICATED Visit type - Emergency Visit Emergency Visit: Yes ED Registration Date: 06/08/20 Care time: The patient presented to the Emergency Department on the above date and was hospitalized for further evaluation of their emergent condition. - New Patient This patient is new to me today: Yes Date on this admission: 06/13/20 - Critical Care Critical Care patient: No - Discharge Referral Referred to [facility] Med P.C.: No
[2020-06-09] MEDS ORDERED: OLANZapine 10 MG TABLET PO SCH (10:00)
--- NOTE | 2020-06-09 13:19 | CONSULT ---
Consult Detox [facility] Reason for Current Admission/Consult: Alcohol dependence - History History of Present Illness: 55 y.o. male here for alcohol detox. self referred. known to program. last here 10/22/19 for detox. client reports relapsing right after dc. drinking daily all day. 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 he is also on mmtp at [facility]. reported dose 120 mg. last dose today pending verification. he still abusing heroin using 3 bundles daily via ivdu. he speed b alls with cocaine. denies any clean time in the past 12 months. lives with family, unemployed, denies legals. His progress in detox was uneventful other than worsening mental status and was then transferred to [facility] for worsening mental status despite treatment for hepatic encephalopathy with lactulose. He has basically completed alcohol detox now. He is now in [facility] for Pancreatitis with elevated lipase levels - History Source History Provided By: Medical Record, Transfer Record Limitations to Obtaining History: No Limitations - Alcohol/Substance Use Hx Alcohol Use: Yes - Current Drug/Alcohol Use Alcohol Route: Oral Frequency: Daily Amount used: 3 pints daily Age of first use: 21 Date of Last Use: 06/01/20 Heroin Route: Injection Frequency: Daily Amount used: 3 bundles Age of first use: 16 Date of Last Use: 06/01/20 - Past Surgical History Past Surgical History: Yes: None Assessment Plan - Diagnosis (1) Alcohol dependence with uncomplicated withdrawal Status: Acute (2) Altered mental status Status: Acute (3) Asthma Status: Acute Qualifiers: Asthma severity: mild Asthma persistence: intermittent (4) Elevated lipase Status: Acute (5) Schizophrenia Status: Acute (6) Cannabis dependence Status: Chronic - Plan Plan: 1. Alcohol dependence : S/P completion of detox for alcohol. There is no need to continue librium. For now only Ativan doses as needed. When medically stable can be offered rehab. 2. Opioid Dependence on Agonist Therapy. Continue Methadone 120mg daily. If mental status persists, considering decreasing dose. 2. Pancreatitis/ Hepatic Encephalopathy due to untreated HCV: Supportive treatment and follow internal medicine recommendations. Patient when stabilized from bout of pancreatitis and hepatic encephalopathy can be offered rehab at [facility]. Dr. Wagoner
== END 2020-06-09 09:36 | disposition left against medical advice (07) | DRG 52 ==
LOC: JER 10:38 → JERBED 16:06 → J6S 21:15
PROVIDERS: ADMIT Internal Medicine; ATTEND Nurse Practitioner Family
PROC: HZ91ZZZ Pharmacotherapy for Substance Abuse Treatment, Methadone Maintenance (ICD-10-PCS; principal; 2020-06-08)
DX: G93.41 Metabolic encephalopathy (principal); G40.909 Epilepsy, unspecified, not intractable, without status epilepticus; K85.90 Acute pancreatitis without necrosis or infection, unspecified; F11.20 Opioid dependence, uncomplicated; F20.9 Schizophrenia, unspecified; I10 Essential (primary) hypertension; B19.20 Unspecified viral hepatitis C without hepatic coma; J45.909 Unspecified asthma, uncomplicated; R74.0 Nonspecific elevation of levels of transaminase and lactic acid dehydrogenase [LDH]; T40.3X5A Adverse effect of methadone, initial encounter; F41.9 Anxiety disorder, unspecified; Z99.89 Dependence on other enabling machines and devices; F12.20 Cannabis dependence, uncomplicated; F10.20 Alcohol dependence, uncomplicated
CPT/HCPCS: 36415; 70450-TC; 71045-TC-FY; 76700-TC; 80053; 80307; 81003; 82140; 82550; 82553; 82803; 83605; 83690; 84439; 84443; 84484; 85025; 85610; 85730; 87086; 93005; 93010; 99285-25; U0003

== ENCOUNTER 2021-04-02 16:50 | Inpatient (IN) | payer OTHER ==
[2021-04-02] MEDS ORDERED: MAG HYDROX/AL HYDROX/SIMETH 30 ML UNIT-DOSE CUP PO PRN (21:27)
[2021-04-02] MEDS ORDERED: DICYCLOMINE HCL 10 MG CAPSULE PO PRN (21:27)
[2021-04-02] MEDS ORDERED: MAGNESIUM CITRATE 300 ML BOTTLE PO PRN (21:27)
[2021-04-02] MEDS ORDERED: P-EPHED 60MG/TRIPROLIDI 2.5MG TABLET PO PRN (21:27)
[2021-04-02] MEDS ORDERED: guaiFENesin 200 MG/10 ML 10 ML UNIT-DOSE CUPS PO PRN (21:27)
[2021-04-02] MEDS ORDERED: ONDANSETRON *ODT* 4 MG TABLET SL PRN (21:27)
[2021-04-02] MEDS ORDERED: BISMUTH SUBSALICYLATE 524 MG/30 ML UD PO PRN (21:27)
[2021-04-02] MEDS ORDERED: NALOXONE HCL 0.4 MG/ML VIAL IM PRN (21:27)
[2021-04-02] MEDS ORDERED: NICOTINE POLACRILEX 2 MG GUM BUC PRN (21:27)
[2021-04-02] MEDS ORDERED: MAGNESIUM HYDROX 2400MG/30ML ORAL SUSPENSION 30 ML CUP PO PRN (21:27)
[2021-04-02] MEDS ORDERED: MENTHOL/PHENOL 1 EACH UD MM PRN (21:27)
[2021-04-02] MEDS ORDERED: NALOXONE (NARCAN) HCL 4 MG/0.1 ML SPRAY NS PRN (21:27)
[2021-04-02] MEDS ORDERED: ACETAMINOPHEN 325 MG TABLET (FP) PO PRN ×2 (21:27)
[2021-04-02 21:49] VITALS: BMI 35.1
[2021-04-02] MEDS ORDERED: LORazepam 1 MG TABLET ONE (22:00)
[2021-04-02] MEDS: LORazepam 1 MG TABLET PO PRN (22:05)
[2021-04-02] MEDS: LORazepam 2 MG TABLET PO SCH (23:05)
[2021-04-02] MEDS: THIAMINE HCL 100 MG TABLET (FP) PO SCH (23:29)
[2021-04-02] MEDS: MELATONIN 5 MG TABLETS PO SCH (23:29)
[2021-04-03] MEDS: hydrOXYzine PAMOATE 25 MG CAPSULE (FP) PO PRN (03:10)
[2021-04-03] MEDS: LORazepam 2 MG TABLET PO SCH ×4 (05:13→22:18)
[2021-04-03] MEDS ORDERED: METHADONE HCL 40 MG DISPERSABLE TABLET PO ONE (09:00)
[2021-04-03 09:48] LABS: HEMATOCRIT 32.8 % (35.4-49); HEMOGLOBIN 10.9 GM/dL (11.7-16.9); MCH 29.1 pg (25.7-33.7); MCHC 33.4 g/dl (32.0-35.9); MEAN PLT VOLUME 8.8 fl (7.5-11.1); PLATELET COUNT 166 K/MM3 (134-434); RBC 3.77 M/mm3 (4.00-5.60); RDW 14.5 % (11.9-15.9)
[2021-04-03 10:05] LABS: ALBUMIN 3.1 g/dl (3.4-5.0); CALCIUM 8.2 mg/dL (8.5-10.1)
[2021-04-03 10:06] LABS: BLOOD UREA NITROGEN 9.8 mg/dL (7-18)
[2021-04-03 10:09] LABS: CREATININE 0.7 mg/dL (0.55-1.3)
[2021-04-03 10:10] LABS: BILIRUBIN,TOTAL 0.9 mg/dL (0.2-1); TOT PROT 6.8 g/dl (6.4-8.2)
[2021-04-03] MEDS: NICOTINE 21 MG/24 HOURS TOPICAL PATCH TD SCH (10:12)
[2021-04-03] MEDS: PRENATAL VITAMINS W/ FOLIC ACID TABLET (FP) PO SCH (10:13)
[2021-04-03] MEDS: THIAMINE HCL 100 MG TABLET (FP) PO SCH (22:19)
[2021-04-03] MEDS: MELATONIN 5 MG TABLETS PO SCH (22:19)
[2021-04-04] MEDS: LORazepam 1 MG TABLET PO SCH ×4 (05:42→23:06)
[2021-04-04] MEDS: METHADONE HCL 40 MG DISPERSABLE TABLET PO SCH (05:42)
[2021-04-04 10:09] LABS: INR 1.03 (0.83-1.09); PROTHROMBIN TIME (PATIENT) 12.7 SEC (9.7-13.0)
[2021-04-04 10:22] LABS: ALBUMIN 3.3 g/dl (3.4-5.0); BLOOD UREA NITROGEN 10.5 mg/dL (7-18); CALCIUM 8.9 mg/dL (8.5-10.1)
[2021-04-04 10:24] LABS: CREATININE 0.7 mg/dL (0.55-1.3)
[2021-04-04 10:26] LABS: BILIRUBIN,TOTAL 0.8 mg/dL (0.2-1); TOT PROT 7.2 g/dl (6.4-8.2)
[2021-04-04] MEDS: NICOTINE 21 MG/24 HOURS TOPICAL PATCH TD SCH (10:31)
[2021-04-04] MEDS: PRENATAL VITAMINS W/ FOLIC ACID TABLET (FP) PO SCH (10:31)
[2021-04-04] MEDS ORDERED: cloNIDine HCL 0.1 MG TABLET PO PRN (14:23)
[2021-04-04] MEDS: LORazepam 1 MG TABLET PO PRN (18:35)
[2021-04-04] MEDS: IBUPROFEN 400 MG TABLET (FP) PO PRN (18:42)
[2021-04-04] MEDS: METHOCARBAMOL 500 MG TABLET PO PRN (18:42)
[2021-04-04] MEDS: MELATONIN 5 MG TABLETS PO SCH (22:06)
[2021-04-04] MEDS: THIAMINE HCL 100 MG TABLET (FP) PO SCH (23:06)
[2021-04-05] MEDS ORDERED: LORazepam 0.5 MG TABLET PO PRN
[2021-04-05] MEDS: LORazepam 0.5 MG TABLET PO SCH ×4 (05:25→22:33)
[2021-04-05] MEDS: METHADONE HCL 40 MG DISPERSABLE TABLET PO SCH (05:25)
[2021-04-05] MEDS: NICOTINE 21 MG/24 HOURS TOPICAL PATCH TD SCH (10:27)
[2021-04-05] MEDS: PRENATAL VITAMINS W/ FOLIC ACID TABLET (FP) PO SCH (10:27)
[2021-04-05] MEDS: IBUPROFEN 400 MG TABLET (FP) PO PRN ×2 (12:30→22:34)
[2021-04-05] MEDS: hydrOXYzine PAMOATE 25 MG CAPSULE (FP) PO PRN ×2 (12:31→22:33)
[2021-04-05] MEDS: METHOCARBAMOL 500 MG TABLET PO PRN ×2 (12:31→22:33)
[2021-04-05] MEDS: THIAMINE HCL 100 MG TABLET (FP) PO SCH (22:33)
[2021-04-05] MEDS: MELATONIN 5 MG TABLETS PO SCH (22:34)
[2021-04-06] MEDS ORDERED: LORazepam 0.5 MG TABLET PO ONE (05:00)
[2021-04-06] MEDS: METHADONE HCL 40 MG DISPERSABLE TABLET PO SCH (05:27)
[2021-04-06] MEDS: PRENATAL VITAMINS W/ FOLIC ACID TABLET (FP) PO SCH (10:47)
[2021-04-06] MEDS: NICOTINE 21 MG/24 HOURS TOPICAL PATCH TD SCH (10:47)
[2021-04-06 12:20] LABS: SARS-CoV-2 NAA Not Detected
[2021-04-06 13:56] VITALS: BP 126/74; PULSE 99; TEMP 97.7
== END 2021-04-06 14:25 | disposition other institution (70) | DRG 773 ==
LOC: YASAS 16:50 → Y6N 21:57
PROVIDERS: ADMIT Allergy & Immunology; ATTEND Allergy & Immunology
PROC: HZ2ZZZZ Detoxification Services for Substance Abuse Treatment (ICD-10-PCS; principal; 2021-04-02)
DX: F10.230 Alcohol dependence with withdrawal, uncomplicated (principal); F11.20 Opioid dependence, uncomplicated; F13.20 Sedative, hypnotic or anxiolytic dependence, uncomplicated; F14.20 Cocaine dependence, uncomplicated; F17.210 Nicotine dependence, cigarettes, uncomplicated; F19.282 Other psychoactive substance dependence with psychoactive substance-induced sleep disorder; F19.280 Other psychoactive substance dependence with psychoactive substance-induced anxiety disorder; F19.24 Other psychoactive substance dependence with psychoactive substance-induced mood disorder; D64.9 Anemia, unspecified; G40.509 Epileptic seizures related to external causes, not intractable, without status epilepticus; J45.20 Mild intermittent asthma, uncomplicated; K29.70 Gastritis, unspecified, without bleeding; B18.2 Chronic viral hepatitis C; M54.5 Low back pain; G89.29 Other chronic pain; R03.0 Elevated blood-pressure reading, without diagnosis of hypertension; R94.8 Abnormal results of function studies of other organs and systems; Z87.442 Personal history of urinary calculi; Z99.89 Dependence on other enabling machines and devices
CPT/HCPCS: 36415; 80053; 85027; 85610; 86780; C9803; U0003; U0005

== ENCOUNTER 2021-04-06 14:30 | Inpatient (IN) | payer OTHER ==
[2021-04-06] MEDS ORDERED: ACETAMINOPHEN 325 MG TABLET (FP) PO PRN (15:23)
[2021-04-06] MEDS ORDERED: LOPERAMIDE HCL 2 MG CAPSULE PO PRN (15:23)
[2021-04-06] MEDS ORDERED: P-EPHED 60MG/TRIPROLIDI 2.5MG TABLET PO PRN (15:23)
[2021-04-06] MEDS ORDERED: MAG HYDROX/AL HYDROX/SIMETH 30 ML UNIT-DOSE CUP PO PRN (15:23)
[2021-04-06] MEDS ORDERED: hydrOXYzine PAMOATE 25 MG CAPSULE (FP) PO PRN (15:23)
[2021-04-06] MEDS ORDERED: MAGNESIUM HYDROX 2400MG/30ML ORAL SUSPENSION 30 ML CUP PO PRN (15:23)
[2021-04-06] MEDS ORDERED: MENTHOL/PHENOL 1 EACH UD MM PRN (15:23)
[2021-04-06] MEDS ORDERED: NICOTINE POLACRILEX 2 MG GUM BUC PRN (15:23)
[2021-04-06] MEDS ORDERED: MAGNESIUM CITRATE 300 ML BOTTLE PO PRN (15:23)
[2021-04-06] MEDS ORDERED: guaiFENesin 200 MG/10 ML 10 ML UNIT-DOSE CUPS PO PRN (15:23)
[2021-04-06] MEDS ORDERED: IBUPROFEN 400 MG TABLET (FP) PO PRN (15:23)
[2021-04-06] MEDS ORDERED: DICYCLOMINE HCL 10 MG CAPSULE PO PRN (15:29)
[2021-04-06] MEDS: METHOCARBAMOL 500 MG TABLET PO SCH ×2 (17:54→21:23)
[2021-04-06 20:27] LABS: URINE APPEARANCE CLEAR; URINE BILIRUBIN NEGATIVE (NEGATIVE); URINE COLOR YELLOW; URINE GLUCOSE (UA) NEGATIVE (NEGATIVE); URINE KETONE TRACE (NEGATIVE); URINE LEUK ESTERASE NEGATIVE (NEGATIVE); URINE NITRITE NEGATIVE (NEGATIVE); URINE PROTEIN NEGATIVE (NEGATIVE)
[2021-04-06] MEDS: THIAMINE HCL 100 MG TABLET (FP) PO SCH (21:23)
[2021-04-06] MEDS: OLANZapine 10 MG TABLET PO SCH (21:23)
[2021-04-06] MEDS: SUVOREXANT 5 MG TABLET PO PRN (21:24)
[2021-04-06] MEDS: levETIRAcetam 500 MG TABLET (FP) PO SCH (21:24)
[2021-04-06] MEDS ORDERED: MELATONIN 5 MG TABLETS PO SCH (22:00)
[2021-04-07] MEDS: METHADONE HCL 40 MG DISPERSABLE TABLET PO SCH (06:56)
[2021-04-07] MEDS: METHOCARBAMOL 500 MG TABLET PO SCH ×4 (09:47→21:40)
[2021-04-07] MEDS: levETIRAcetam 500 MG TABLET (FP) PO SCH ×2 (09:47→21:40)
[2021-04-07] MEDS: PRENATAL VITAMINS W/ FOLIC ACID TABLET (FP) PO SCH (09:47)
[2021-04-07] MEDS ORDERED: NICOTINE 7 MG/24 HOURS TOPICAL PATCH TD SCH ×2 (10:00)
[2021-04-07] MEDS: NICOTINE 21 MG/24 HOURS TOPICAL PATCH TD SCH (12:03)
[2021-04-07] MEDS: OLANZapine 10 MG TABLET PO SCH (21:40)
[2021-04-07] MEDS: SUVOREXANT 5 MG TABLET PO PRN (21:40)
[2021-04-07] MEDS: THIAMINE HCL 100 MG TABLET (FP) PO SCH (21:40)
[2021-04-08] MEDS: METHADONE HCL 40 MG DISPERSABLE TABLET PO SCH (06:51)
[2021-04-08] MEDS: levETIRAcetam 500 MG TABLET (FP) PO SCH ×2 (09:43→21:19)
[2021-04-08] MEDS: METHOCARBAMOL 500 MG TABLET PO SCH ×4 (09:43→21:19)
[2021-04-08] MEDS: PRENATAL VITAMINS W/ FOLIC ACID TABLET (FP) PO SCH (09:43)
[2021-04-08] MEDS: NICOTINE 21 MG/24 HOURS TOPICAL PATCH TD SCH (09:43)
[2021-04-08] MEDS: THIAMINE HCL 100 MG TABLET (FP) PO SCH (21:19)
[2021-04-08] MEDS: OLANZapine 10 MG TABLET PO SCH (21:19)
[2021-04-08] MEDS: SUVOREXANT 5 MG TABLET PO PRN (21:20)
[2021-04-09] MEDS: METHADONE HCL 40 MG DISPERSABLE TABLET PO SCH (06:32)
[2021-04-09 06:55] VITALS: BP 135/86; PULSE 79; TEMP 97
[2021-04-09] MEDS: levETIRAcetam 500 MG TABLET (FP) PO SCH (10:16)
[2021-04-09] MEDS: PRENATAL VITAMINS W/ FOLIC ACID TABLET (FP) PO SCH (10:16)
[2021-04-09] MEDS: NICOTINE 21 MG/24 HOURS TOPICAL PATCH TD SCH (10:16)
[2021-04-09] MEDS: METHOCARBAMOL 500 MG TABLET PO SCH ×2 (12:08→15:05)
[2021-04-09] MEDS ORDERED: AMMONIUM LACTATE 12% LOTION 225 GM BOTTLE TP PRN (14:45)
[2021-04-09] MEDS ORDERED: LIDOCAINE 5% TOPICAL PATCH TP SCH (14:45)
[2021-04-09] MEDS ORDERED: LIDOCAINE PATCH REMOVAL MC SCH (22:00)
[2021-04-09] MEDS ORDERED: SUVOREXANT 5 MG TABLET PO PRN (22:00)
[2021-04-10 06:07] LABS: SARS-CoV-2 NAA Not Detected (Not Detected)
== END 2021-04-09 16:15 | disposition home or self-care (01) | DRG 772 ==
LOC: YASAS 14:30 → Y3W 14:31
PROVIDERS: ADMIT Allergy & Immunology; ATTEND Allergy & Immunology
PROC: HZ42ZZZ Group Counseling for Substance Abuse Treatment, Cognitive-Behavioral (ICD-10-PCS; principal; 2021-04-06)
DX: F10.20 Alcohol dependence, uncomplicated (principal); F11.20 Opioid dependence, uncomplicated; F13.10 Sedative, hypnotic or anxiolytic abuse, uncomplicated; F12.20 Cannabis dependence, uncomplicated; F17.210 Nicotine dependence, cigarettes, uncomplicated; F20.9 Schizophrenia, unspecified; F31.9 Bipolar disorder, unspecified; F19.282 Other psychoactive substance dependence with psychoactive substance-induced sleep disorder; L84 Corns and callosities; J45.909 Unspecified asthma, uncomplicated; B18.2 Chronic viral hepatitis C; Z91.5 Personal history of self-harm
CPT/HCPCS: 36415; 80177; 81003; C9803; U0003; U0005